=== PATIENT | female | born 1945 | race African-American/Black ===

== ENCOUNTER 2018-01-23 11:54 | Emergency (ER) | payer OTHER ==
[~2018-01-23] VITALS: Ht 160 cm; Wt 103.0 kg
[~2018-01-23 11:54] MED LIST: AMLODIPINE BESY10 MG PO; ASPIRIN EC81 MG PO; ATORVASTATIN CA20 MG PO; BMT1T PO; CARVEDILOL12.5 MG PO; CEFUROXIME500 MG PO; COREG12.5 MG PO; DOXYCYCLINE HY100 MG PO; FERROUS SULFAT325 MG PO; FUROSEMIDE40 MG PO; GABAPENTIN300 MG PO; GLIPIZIDE5 MG PO; HYDRALAZINE HCL25 MG PO; LASIX40 MG PO; LYRICA75 MG PO; METOPROLOL SUCC50 MG PO; NFD30TCR PO; NITROSTAT0.4 MG PO; NORCO 5-325 TA1 EACH PO; NOVOLIN 70100 UNITS/ SQ; PANTOPRAZOLE SO40 MG PO; TYLENOL WITH C1 EACH PO; ULTRAM50 MG PO
--- OUTSIDE RECORDS SUMMARY | 2018-01-23 11:59 | XMS REPORT | Clinical Summary ---
Author Author [facility] Organization [place] [facility] Address Unknown Phone Unavailable Care Team Providers Care Dem[employer]ator [employer] Name Role Phone Asked, No Pcp PCP Unavailable Allergies No Known Allergies Current Medications Prescription Sig. Disp. Refills Start End Date Status Date amLODIPine (NORVASC) 5 mg 07/16/19 Active tablet 18 atorvastatin (LIPITOR) 80 06/14/19 Active MG tablet 18 CONTOUR TEST STRIPS strip 05/30/19 Active test strips 18 calcitriol (ROCALTROL) TAKE ONE (1) CAPSULE(S) 3 06/29/19 Active 0.5 MCG capsule BY MOUTH DAILY. 18 calcium acetate (PHOSLO) 04/30/19 Active 667 mg capsule 18 carvedilol (COREG) 25 MG 06/14/19 Active tablet 18 furosemide (LASIX) 40 mg TAKE TWO (2) TABLET(S) BY 1 07/01/19 Active tablet MOUTH TWICE A DAY. 18 NOVOLOG MIX 70-30FLEXPEN Take Insulin twice a day 5 06/30/19 Active U-100 100 unit/mL (70-30) per sliding scale. 18 insulin pen TRUEPLUS LANCETS 28 gauge 05/30/19 Active misc 18 NIFEdipine XL (PROCARDIA 06/14/19 Active XL) 60 MG 24 hr tablet 18 pantoprazole (PROTONIX) TAKE ONE (1) TABLET(S) BY 3 07/01/19 Active 20 MG EC tablet MOUTH DAILY. 18 aspirin 81 mg chewable Chew 1 tablet daily. Active tablet cranberry 500 mg capsule Take 1 tablet by mouth Active daily. garlic 1,000 mg capsule Take 1 capsule by mouth Active daily. nitroglycerin (NITROSTAT) Place 0.4 mg under the 08/11/19 Active 0.4 MG SL tablet tongue as needed for 17 chest pain. acetaminophen-codeine Take 1 tablet by mouth Active (TYLENOL WITH CODEINE #3) every 6 (six) hours as 300-30 mg per tablet needed for pain. jrwjwqaxufny-Nb-tznj-mine Take 1 tablet by mouth Active rals tablet daily. ferrous sulfate 325 (65 Take 325 mg by mouth 3 Active FE) MG tablet (three) times a week. glipiZIDE (GLUCOTROL) 10 Take 10 mg by mouth as Active MG tablet needed. gabapentin (NEURONTIN) TAKE ONE (1) CAPSULE(S) 1 05/17/19 09/24/19 Discontin 100 mg capsule BY MOUTH TWICE A DAY. 18 18 ued gabapentin (NEURONTIN) 07/16/19 07/20/19 Discontin 300 mg capsule 18 18 ued metoclopramide (REGLAN) Take 0.5 tablets (5 mg 30 tablet 0 11/25/19 12/25/19 10 MG tablet total) by mouth every 6 18 18 (six) hours for 30 days. ciprofloxacin (CIPRO) 500 Take 1 tablet (500 mg 10 tablet 0 11/25/19 11/30/19 MG tablet total) by mouth 2 (two) 18 18 times a day for 5 days. Active Problems Problem Noted Date Left SCV stenosis mild, Right BCV stenosis moderate 10/16/2017 CVA (cerebral vascular accident) 1994 07/19/2017 Hypertension 07/19/2017 CHF (congestive heart failure) ([facility]) 07/19/2017 Diabetes mellitus (HCC) 07/19/2017 Hyperlipidemia 07/19/2017 Atrial fibrillation s/p Ablation 07/19/2017 ESRD (end stage renal disease) 2017 MWF 07/19/2017 Last Assessment & Plan: N. Patient with access needs. We gave the patient our kidney failure information sheet and discussed with them in general transplant vs. PD vs. hemodialysis. We discussed catheters vs. grafts vs. fistulas and used the informational posters to better explain the differences. We explained our general preference for fistulas because of decreased infections and increased longevity. We discussed operative complications including bleeding, thrombosis, failure of the access, swelling, steal syndrome, and need for additional procedures. Vein mapping reviewed by me. Plan for bilateral arm venograms, then later, R arm AVF vs. AVG (ELDERLY trial eval). 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 Back problem 07/19/2017 GERD (gastroesophageal reflux disease) 07/19/2017 Encounters Date Type Specialty Care Team Description 11/24/2017 Emergency Emergency Medicine Nuszen, Gregg A., DO Non-intractable cyclical vomiting with nausea (Primary Dx); Esophagitis 11/24/2017 Hospital Radiology Jaida Carranza MD ESRD (end stage renal Encounter disease) 11/24/2017 [facility] Radiology Jaida Carranza MD ESRD (end stage renal Encounter disease) 11/24/2017 Ancillary Radiology Jaida Carranza MD ESRD (end stage renal Orders disease) 11/24/2017 Procedure Pass Vascular Surgery 11/02/2017 Prep for Cardiovascular Chaya Vallecillo ESRD (end stage renal Surgery disease) (Primary Dx) 11/02/2017 Telephone Cardiovascular Chaya Vallecillo 10/16/2017 Documentation Cardiovascular Jaida Carranza MD Results 09/27/2017 [facility] Radiology Jaida Carranza MD ESRD (end stage renal Encounter disease) 2016 MWF 07/19/2017 Office Visit Jaida Singh MD ESRD (end stage renal disease) 2016 MWF (Primary Dx) 06/07/2017 Orders Only Cardiovascular Jaida Carranza MD End stage renal disease (Primary Dx) after 01/22/2017 Social History Tobacco Use Types Packs/Day Years Used Date Former Smoker Smokeless Tobacco: Former User Alcohol Use Drinks/Week oz/Week Comments No Sex Assigned at Date Recorded Not on file Last Filed Vital Signs Vital Sign Reading Time Taken Blood Pressure 163/68 11/24/2017 11:43 AM CDT Pulse 73 11/24/2017 11:43 AM CDT Temperature 35.8 C (96.4 F) 11/24/2017 11:43 AM CDT Respiratory Rate 16 11/24/2017 11:43 AM CDT Oxygen Saturation 100% 11/24/2017 11:43 AM CDT Inhaled Oxygen - - Concentration Weight 92.1 kg (203 lb) 11/24/2017 9:14 AM CDT Height 157.5 cm (5' 2") 11/24/2017 9:14 AM CDT Body Mass Index 37.13 11/24/2017 9:14 AM CDT Plan of Treatment Health Maintenance Due Date Last Done Comments DIABETIC FOOT EXAM 06/24/1955 DIABETIC RETINAL EYE EXAM 06/24/1955 URINE MICROALBUMIN 06/24/1955 BREAST CANCER SCREENING 06/24/1995 COLON CANCER SCREENING 06/24/1995 SHINGRIX VACCINE (#1) 06/24/1995 ZOSTER VACCINE 2005 INFLUENZA VACCINE 11/02/2017 01/06/2010, 01/02/2009, 01/09/2008 PNEUMOCOCCAL Completed 2011, 07/01/2006 POLYSACCHARIDE VACCINE AGE 65 AND OVER PNEUMOCOCCAL-13 Completed 12/04/2015 Implants Implanted Type Area Banana Handler Device Expiration Model / Identifier Date Serial / Lot Catheter Angio Anglesmith Helper Ii 5fr 65cm Surgical N/A: N/A BS PERIPHERAL [id number] [facility] Braidd Torque Diaz - Implants; INTERVENTION / [id number] Expanders; VASCULAR JEFF / Implanted: 09/27/2017 (Quantity not Extenders; on file) Surgical Wires Procedures Procedure Name Priority Date/Time Associated Diagnosis Comments URINALYSIS STAT 11/24/2017 Results for this 12:03 PM CDT procedure are in the results section. CT HEAD WO CONTRAST STAT 11/24/2017 Results for this 10:35 AM CDT procedure are in the results section. ZZESTIMATED GFR STAT 11/24/2017 Results for this 10:28 AM CDT procedure are in the results section. TROPONIN, I-STAT STAT 11/24/2017 Results for this 10:28 AM CDT procedure are in the results section. CREATINE KINASE, TOTAL STAT 11/24/2017 Results for this (CPK) 10:28 AM CDT procedure are in the results section. COMPREHENSIVE METABOLIC STAT 11/24/2017 Results for this PANEL 10:28 AM CDT procedure are in the results section. LACTIC ACID, I-STAT STAT 11/24/2017 Results for this 10:28 AM CDT procedure are in the results section. HC COMPLETE BLD COUNT STAT 11/24/2017 Results for this W/AUTO DIFF 10:28 AM CDT procedure are in the results section. ECG ED PRELIMINARY Routine 11/24/2017 Results for this INTERPRETATION 9:47 AM CDT procedure are in the results section. ECG 12-LEAD STAT 11/24/2017 Results for this 9:45 AM CDT procedure are in the results section. IR BILATERAL UPPER Routine 09/27/2017 ESRD (end stage renal Results for this EXTREMITY VENOGRAM 10:04 AM CDT disease) 2017 MWF procedure are in the results section. POC GLUCOSE Routine 09/27/2017 Results for this 7:44 AM CDT procedure are in the results section. US VEIN MAPPING UPPER Routine 07/19/2017 End stage renal disease Results for this EXTREMITY BILATERAL 8:54 AM CDT procedure are in the results section. after 01/22/2017 Results * Urinalysis (11/24/2017 12:03 PM) Glucose, UA Negative Negative [facility] Bilirubin, UA Negative Negative [facility] Ketones, UA Negative Negative [facility] Specific gravity, UA 1.020 1.001 - 1.035 [facility] Blood, UA Trace (A) Negative [facility] pH, UA 7.0 5.0 - 8.5 [facility] Protein, UA 3+ (A) Negative [facility] Urobilinogen, UA <2.0 <2.0 [facility] Nitrite, UA Negative Negative [facility] Leukocyte esterase, UA Small (A) Negative [facility] Color, UA Yellow [facility] Appearance, UA Cloudy [facility] Specimen Urine Performing Organization Address City/State/Zipcode Phone Number [address] [address] PATHOLOGY AND [facility] * CT Head Wo Contrast (11/24/2017 10:35 AM) Narrative Performed At EXAMINATION: CT HEAD WO CONTRAST RADIANT CLINICAL HISTORY: Headacheacutesevereworst KELLY of life, increasing nausea for 2 weeks COMPARISON:CT brain from October 10, 2014. MRI brain from October 12, 2014. TECHNIQUE: Noncontrast enhanced images of the brain were obtained from the skull base to the vertex. Both soft tissue and bone reconstruction algorithms were performed.CT scans are performed using radiation dose reduction techniques. Technical factors are evaluated and adjusted to ensure appropriate moderation of exposure. Automated dose management technology is applied to adjust radiation exposure while achieving a diagnostic quality image. FINDINGS: Artifacts obscure details. There is no definite evidence of acute intracranial hemorrhage or mass, hydrocephalus or midline shift, stroke or thrombus in the vessels. There are old infarcts in the cerebellum. There is nonspecific enlargement of the ventricles and extra-axial space and mild nonspecific white matter changes. There is calcification of frye of some arteries. The sella is partially empty. There is pseudophakia. The sinuses and mastoid air cells do not show abnormality. There is nonspecific increased bone density. IMPRESSION: No acute intracranial abnormality identified. [facility]-[id number] Procedure Note Interface, Radiology Results Incoming - 11/24/2017 10:40 AM CDT EXAMINATION: CT HEAD WO CONTRAST CLINICAL HISTORY: Headache acute severe worst KELLY of life, increasing nausea for 2 weeks COMPARISON: CT brain from October 10, 2014. MRI brain from October 12, 2014. TECHNIQUE: Noncontrast enhanced images of the brain were obtained from the skull base to the vertex. Both soft tissue and bone reconstruction algorithms were performed. CT scans are performed using radiation dose reduction techniques. Technical factors are evaluated and adjusted to ensure appropriate moderation of exposure. Automated dose management technology is applied to adjust radiation exposure while achieving a diagnostic quality image. FINDINGS: Artifacts obscure details. There is no definite evidence of acute intracranial hemorrhage or mass, hydrocephalus or midline shift, stroke or thrombus in the vessels. There are old infarcts in the cerebellum. There is nonspecific enlargement of the ventricles and extra-axial space and mild nonspecific white matter changes. There is calcification of frye of some arteries. The sella is partially empty. There is pseudophakia. The sinuses and mastoid air cells do not show abnormality. There is nonspecific increased bone density. IMPRESSION: No acute intracranial abnormality identified. [facility]-[id number] Performing Organization Address City/State/Zipcode Phone Number [address] [place] [address] * Estimated GFR (11/24/2017 10:28 AM) GFR Non Af Amer 7 (A) mL/min/1.73 m2 DEPARTMENT OF PATHOLOGY AND GENOMIC MEDICINE, [facility] GFR Af Amer 8 (A) mL/min/1.73 m2 DEPARTMENT OF Comment: PATHOLOGY AND Chronic kidney disease: <60 GENOMIC MEDICINE, mL/min/1.73m2 [facility] Kidney failure: <15 [facility] mL/min/1.73m2 The estimated GFR is calculated from the IDMS-traceable Modification of Diet in Renal Disease Equation. The accuracy of the calculation is poor when the creatinine is normal. Calculated values >90 mL/min/1.73m2 are not reported. This equation has not been validated in children (<18 years), women, the elderly (>70 years), or ethnic groups other than Caucasians and Americans. Specimen Plasma specimen Performing Organization Address City/[facility] [place] [address] [facility] * Troponin, I-Stat (11/24/2017 10:28 AM) Troponin, I-Stat 0.00 0.00 - 0.08 ng/mL DEPARTMENT OF Comment: PATHOLOGY AND 0.09 - 1.49 GENOMIC MEDICINE, ng/mlMay [facility] indicate increased risk of [facility] acute coronary syndrome. >=1.5 ng/ml Consistent with acute myocardial infarction. The diagnostic value of a single normal or non-diagnostic result is questionable.Serial samples at 2-6 hour intervals are required to rule out acute myocardial injury. Specimen Plasma specimen Performing Organization Address City/[facility] [place] [address] [facility] * Lactic acid, I-Stat (11/24/2017 10:28 AM) Lactic acid, I-Stat 1.1 0.5 - 2.2 mmol/L [facility] Specimen Plasma specimen Performing Organization Address City/[facility] [place] [address] [facility] * CBC with platelet and differential (11/24/2017 10:28 AM) WBC 5.74 4.50 - 11.00 k/uL [facility] RBC 4.26 4.20 - 5.50 m/uL [facility] HGB 12.0 12.0 - 16.0 g/dL [facility] HCT 38.9 37.0 - 47.0 % [facility] MCV 91.3 82.0 - 100.0 fL [facility] MCH 28.2 27.0 - 34.0 pg [facility] MCHC 30.8 (L) 31.0 - 37.0 g/dL [facility] RDW - SD 52.4 37.0 - 55.0 fL [facility] MPV 10.3 8.8 - 13.2 fL [facility] Platelet count 160 150 - 400 k/uL [facility] Neutrophils 54.7 39.0 - 69.0 % [facility] Lymphocytes 34.3 25.0 - 45.0 % [facility] Monocytes 8.4 0.0 - 10.0 % [facility] Eosinophils 1.9 0.0 - 5.0 % [facility] Basophils 0.7 0.0 - 1.0 % [facility] Specimen Blood Performing Organization Address City/[facility]/[place] [address] [facility] * Creatine kinase, total (CPK) (11/24/2017 10:28 AM) Creatine kinase 60 30 - 190 U/L [facility] Specimen Plasma specimen Performing Organization Address City/State/[place] [address] [facility] * Comprehensive metabolic panel (11/24/2017 10:28 AM) Sodium 134 128 - 145 mEq/L [facility] Potassium 4.6 3.6 - 5.1 mEq/L [facility] CO2 30 18 - 33 mEq/L [facility] Chloride 99 98 - 108 mEq/L [facility] Glucose 111 73 - 118 mg/dL [facility] Calcium 9.7 8.0 - 10.3 mg/dL [facility] BUN 29 (H) 7 - 22 mg/dL [facility] Creatinine 6.3 (H) 0.6 - 1.2 mg/dL [facility] Alkaline phosphatase 28 (L) 42 - 141 U/L [facility] ALT 27 10 - 47 U/L [facility] AST 30 11 - 38 U/L [facility] Total bilirubin 0.4 0.2 - 1.6 mg/dL [facility] Albumin 3.6 3.3 - 5.5 g/dL [facility] Protein 6.9 6.4 - 8.1 g/dL [facility] Anion gap 5@ANIO (L) 7 - 15 mEq/L [facility] A/G ratio 1.1 0.7 - 3.8 [facility] Specimen Plasma specimen Performing Organization Address City/State/[place] [address] [facility] * ECG ED Preliminary Interpretation - NOT AN ORDER (11/24/2017 9:47 AM) Narrative Performed At Gregg Guaman DO 11/24/20179:48 AM ECG ED Preliminary Interpretation - Not an Order Performed by: GREGG GUAMAN Authorized by: GREGG GUAMAN ECG reviewed by ED Physician in the absence of a assistant professor of sociology: yes Previous ECG: Previous ECG:Unavailable Interpretation: Interpretation: normal Rate: ECG rate:67 ECG rate assessment: normal Rhythm: Rhythm: sinus rhythm Ectopy: Ectopy: none QRS: QRS axis:Normal Conduction: Conduction: normal ST segments: ST segments:Normal T waves: T waves: normal * ECG 12 lead (11/24/2017 9:45 AM) Ventricular rate 67 [facility] Atrial rate 67 [facility] OR interval 194 [facility] QRSD interval 70 [facility] QT interval 404 [facility] QTC interval 426 [facility] P axis 1 41 [facility] QRS axis 1 -11 [facility] T wave axis 29 [facility] EKG impression Normal sinus rhythm-Poor R [facility] wave progression-Nonspecific T wave abnormality-Abnormal ECG-In automated comparison with ECG of 10-OCT-2014 21:21,-Questionable change in QRS axis-Nonspecific T wave abnormality now evident in Inferior leads- Performing Organization Address City/State/Zipcode Phone Number [facility] MUSE [address] [place] [address] * IR Bilateral Upper Extremity Venogram (09/27/2017 10:04 AM) Narrative Performed At EXAMINATION:IR BILATERAL UPPER EXTREMITY VENOGRAM HM RADIANT CLINICAL HISTORY:N18.6 End stage renal disease, Eval for hemodialysis access COMPARISON:None. PROCEDURE: Diagnostic venography Procedural Personnel Attending physician(s): Jose Ellison Fellow physician(s): None Resident physician(s): None Advanced practice provider(s): None Pre-procedure diagnosis: End-stage renal disease undergoing hemodialysis access planning. Post-procedure diagnosis: Same Indication: [id number] renal disease undergoing hemodialysis access planning. Surgical planning. Additional clinical history: None Complications: No immediate complications. 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 Bilateral axillary veins, right subclavian vein, and SVC are patent. Plan:Discharge home PROCEDURE SUMMARY: - Venous access with ultrasound guidance - Selective venography as described below - Additional procedure(s): None PROCEDURE DETAILS: Pre-procedure Consent: Informed consent for the procedure including risks, benefits and alternatives was obtained and time-out was performed prior to the procedure. Preparation: The site was prepared and draped using maximal sterile barrier technique including cutaneous antisepsis. Anesthesia/sedation Level of anesthesia/sedation: No sedation Anesthesia/sedation administered by: Independent trained observer under attending supervision with continuous monitoring of the patient's level of consciousness and physiologic status Total intra-service sedation time (minutes): Not applicable Access Local anesthesia was administered. The vessel was sonographically evaluated and determined to be patent. Real time ultrasound was used to visualize needle entry into the vessel and a permanent image was stored. A 5 Welsh sheath was placed. Vein accessed: Left and right brachial veins. Access technique: Micropuncture set with 21 gauge needle Venography Indication for venography: Roadmapping for procedure Vein catheterized: Left and right brachial veins Findings: Left upper extremity: Left subclavian vein stenosis near the subclavian/brachiocephalic vein junction. Right brachiocephalic vein stenosis. Closure The sheath was removed and hemostasis was achieved with manual compression. A sterile dressing was applied. Contrast Contrast agent: Visipaque 320 Contrast volume (mL): 50 Radiation Dose: Reference air kerma (mGy): 75 Additional Details Additional description of procedure: None Equipment details: None Specimens removed: None Estimated blood loss (mL): Less than 10 Standardized report: [id number] [facility]-[id number] Procedure Note Hm Interface, Radiology Results Incoming - 09/27/2017 4:35 PM CDT EXAMINATION: IR BILATERAL UPPER EXTREMITY VENOGRAM CLINICAL HISTORY: N18.6 End stage renal disease, Eval for hemodialysis access COMPARISON: None. PROCEDURE: Diagnostic venography Procedural Personnel Attending physician(s): Jose Ellison Fellow physician(s): None Resident physician(s): None Advanced practice provider(s): None Pre-procedure diagnosis: End-stage renal disease undergoing hemodialysis access planning. Post-procedure diagnosis: Same Indication: [id number] renal disease undergoing hemodialysis access planning. Surgical planning. Additional clinical history: None Complications: No immediate complications. 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 Bilateral axillary veins, right subclavian vein, and SVC are patent. Plan:Discharge home PROCEDURE SUMMARY: - Venous access with ultrasound guidance - Selective venography as described below - Additional procedure(s): None PROCEDURE DETAILS: Pre-procedure Consent: Informed consent for the procedure including risks, benefits and alternatives was obtained and time-out was performed prior to the procedure. Preparation: The site was prepared and draped using maximal sterile barrier technique including cutaneous antisepsis. Anesthesia/sedation Level of anesthesia/sedation: No sedation Anesthesia/sedation administered by: Independent trained observer under attending supervision with continuous monitoring of the patient's level of consciousness and physiologic status Total intra-service sedation time (minutes): Not applicable Access Local anesthesia was administered. The vessel was sonographically evaluated and determined to be patent. Real time ultrasound was used to visualize needle entry into the vessel and a permanent image was stored. A 5 Welsh sheath was placed. Vein accessed: Left and right brachial veins. Access technique: Micropuncture set with 21 gauge needle Venography Indication for venography: Roadmapping for procedure Vein catheterized: Left and right brachial veins Findings: Left upper extremity: Left subclavian vein stenosis near the subclavian/brachiocephalic vein junction. Right brachiocephalic vein stenosis. Closure The sheath was removed and hemostasis was achieved with manual compression. A sterile dressing was applied. Contrast Contrast agent: Visipaque 320 Contrast volume (mL): 50 Radiation Dose: Reference air kerma (mGy): 75 Additional Details Additional description of procedure: None Equipment details: None Specimens removed: None Estimated blood loss (mL): Less than 10 Standardized report: [id number] [facility]-[id number] Performing Organization Address [facility] Hospitalcode Phone Number [facility] [address] [place] [address] * POC glucose (09/27/2017 7:44 AM) POC glucose 157 (H) 65 - 99 mg/dL [facility] DEPARTMENT OF Comment: PATHOLOGY AND [facility] Notified RN GENOMIC MEDICINE Meter ID: [id number] Appliance Painter And Refinisher: Donavan Simon Performing Organization Address City/[facility]/Zipcode Phone Number [address] [address] PATHOLOGY AND GENOMIC MEDICINE * PV vein mapping upper extremity (07/19/2017 8:54 AM) Narrative Performed At [facility] Upper Extremity Vein Mapping Duplex Report [id number] [place], [place] Pat.Name:ERENDIRA ACEVEDO Pat.ID:[id number] .Date: 07/19/2017 Refer.MD:JAIDA CARRANZA MD Exam Time: 8:05:00 AMStudy Type:UE Vein Mapping DOBAge:1945,72Y Sex: FEMALE Sonogrphr: Prasanth Garcia. Stat.:Outpatient CPT - 4: 36255 Echo Event ID:[id number] Order ID:[id number] Reason for Study:Pre-operative vein mapping, previous failed right upper extremity AVF. ESRD. Right TDC Race:B SUMMARY: DUPLEX SCAN OBSERVATIONS Right Left IJPatent Patent SubclavianPatent Patent AxillaryPatent Patent BrachialPatent Patent Cephalic, arm Partial Patent Cephalic, forearm PatentNot visualized Basilic, armPatent Patent Basilic, forearm Not visualized Patent Brachial artery Pressure 197/71198/79 PSV cm/sec 9096 Radial artery PSV cm/sec 6644 Ulnar artery PSV cm/sec 4670 RIGHT:The distal upper arm cephalic vein is non compressible with echogenic material visualized within the lumen. There is normal compressibility and no evidence of echogenic material noted within the lumen of the remaining visualized veins. Colorflow and Doppler signals demonstrate patency. The frye of the radial and ulnar arteries are brightly echogenic. There is a previous failed brachiocephalic AV fistula in the distal upper arm. LEFT: There is normal compressibility and no evidence of echogenic material noted within the lumen of the visualized veins. Colorflow and Doppler signals demonstrate patency.The frye of the radial and ulnar arteries arebrightly echogenic. Patient seen in clinic by Dr. Carranza PHYSICIAN INTERPRETATION 1.No evidence of acute venous thrombosis, bilateral upper extremities. 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 3.There is a previous failed brachiocephalic AV fistula in the right distal upper arm. 4.See diagram for vein measurements MEASUREMENTS: DOPPLER Innominate Right Innominat 0.419 cm UEVEINS Right Cephalic Forearm Prox Cephalic Forear0.18 cm Left Cephalic Upper Arm Prox Cephalic Upper 0.27 cm Right Cephalic Upper Arm Prox Cephalic Upper 0.22 cm Right Cephalic Forearm Mid Cephalic Forear0.27 cm Left Basilic Upper Arm Mid Basilic Upper A0.32 cm Right Basilic Upper Arm Mid Basilic Upper A0.33 cm Right Cephalic Wrist Cephalic Wrist 0.21 cm Left Cephalic Upper Arm Dist Cephalic Upper 0.19 cm Right Cephalic Upper Arm Dist Cephalic Upper 0.25 cm Left Ulnar Artery Ulnar Artery AP0.23 cm Right Ulnar Artery Ulnar Artery AP0.12 cm Left Cephalic Upper Arm Mid Cephalic Upper 0.26 cm Right Cephalic Upper Arm Mid Cephalic Upper 0.23 cm Left Basilic Forearm Prox Basilic Forearm0.24 cm Right Brachial Vein Antecube Brachial Vein A0.42 cm Left Cephalic Antecubital Cephalic Antecu0.27 cm Right Cephalic Antecubital Cephalic Antecu0.26 cm Left Basilic Wrist Basilic Wrist A0.14 cm Left Basilic Antecubital Basilic Antecub0.19 cm Left Radial Artery Radial Artery A0.21 cm Right Radial Artery Radial Artery A0.22 cm Left Basilic Upper Arm Dist Basilic Upper A0.27 cm Right Basilic Upper Arm Dist Basilic Upper A0.38 cm Left Brachial Artery Brachial Artery0.33 cm Right Brachial Artery Brachial Artery 0.4 cm Left Basilic Forearm Mid Basilic Forearm0.19 cm Left Basilic Upper Arm Prox Basilic Upper A0.38 cm Right Basilic Antecubital Fossa Basilic Antecub0.24 cm Left Brachial Vein Antecube Brachial Vein A0.36 cm GRAFT Ulnar A Dist 1 Ulnar A Dist 1 70 cm/s Ulnar Dist Ulnar Dist PSV46 cm/s Brachial A Dist Brachial A Dist90 cm/s Radial A Dist Radial A Dist P66 cm/s Signed 07/19/2017 09:35 AM Brian Lambert MD, RPVI Procedure Note Interface, Radiology Results In - 07/19/2017 9:35 AM CDT [facility] Upper Extremity Vein Mapping Duplex Report [id number] [place] [address] Pat.Name: ERENDIRA ACEVEDO Pat.ID: [id number] .Date: 07/19/2017 Refer.MD: JAIDA CARRANZA MD Exam Time: 8:05:00 AM Study Type:UE Vein Mapping Age: 3 1945,72Y Sex: FEMALE Sonogrphr: DESHAWN Garcia Pat. Stat.:Outpatient CPT - 4: 67488 Echo Event ID:[id number] Order ID: [id number] Reason for Study:Pre-operative vein mapping, previous failed right upper extremity AVF. ESRD. Right C Race: B SUMMARY: DUPLEX SCAN OBSERVATIONS Right Left IJ Patent Patent Subclavian Patent Patent Axillary Patent Patent Brachial Patent Patent Cephalic, arm Partial Patent Cephalic, forearm Patent Not visualized Basilic, arm Patent Patent Basilic, forearm Not visualized Patent Brachial artery Pressure 197/84 191/79 PSV cm/sec 90 96 Radial artery PSV cm/sec 66 44 Ulnar artery PSV cm/sec 46 70 RIGHT:The distal upper arm cephalic vein is non compressible with echogenic material visualized within the lumen. There is normal compressibility and no evidence of echogenic material noted within the lumen of the remaining visualized veins. Colorflow and Doppler signals demonstrate patency. The frye of the radial and ulnar arteries are brightly echogenic. There is a previous failed brachiocephalic AV fistula in the distal upper arm. LEFT: There is normal compressibility and no evidence of echogenic material noted within the lumen of the visualized veins. Colorflow and Doppler signals demonstrate patency. The frye of the radial and ulnar arteries are brightly echogenic. Patient seen in clinic by Dr. Carranza PHYSICIAN INTERPRETATION 1. No evidence of acute venous thrombosis, bilateral upper extremities. 2. 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 3. There is a previous failed brachiocephalic AV fistula in the right distal upper arm. 4. See diagram for vein measurements MEASUREMENTS: DOPPLER Innominate Right Innominat 0.419 cm UEVEINS Right Cephalic Forearm Prox Cephalic Forear 0.18 cm Left Cephalic Upper Arm Prox Cephalic Upper 0.27 cm Right Cephalic Upper Arm Prox Cephalic Upper 0.22 cm Right Cephalic Forearm Mid Cephalic Forear 0.27 cm Left Basilic Upper Arm Mid Basilic Upper A 0.32 cm Right Basilic Upper Arm Mid Basilic Upper A 0.33 cm Right Cephalic Wrist Cephalic Wrist 0.21 cm Left Cephalic Upper Arm Dist Cephalic Upper 0.19 cm Right Cephalic Upper Arm Dist Cephalic Upper 0.25 cm Left Ulnar Artery Ulnar Artery AP 0.23 cm Right Ulnar Artery Ulnar Artery AP 0.12 cm Left Cephalic Upper Arm Mid Cephalic Upper 0.26 cm Right Cephalic Upper Arm Mid Cephalic Upper 0.23 cm Left Basilic Forearm Prox Basilic Forearm 0.24 cm Right Brachial Vein Antecube Brachial Vein A 0.42 cm Left Cephalic Antecubital Cephalic Antecu 0.27 cm Right Cephalic Antecubital Cephalic Antecu 0.26 cm Left Basilic Wrist Basilic Wrist A 0.14 cm Left Basilic Antecubital Basilic Antecub 0.19 cm Left Radial Artery Radial Artery A 0.21 cm Right Radial Artery Radial Artery A 0.22 cm Left Basilic Upper Arm Dist Basilic Upper A 0.27 cm Right Basilic Upper Arm Dist Basilic Upper A 0.38 cm Left Brachial Artery Brachial Artery 0.33 cm Right Brachial Artery Brachial Artery 0.4 cm Left Basilic Forearm Mid Basilic Forearm 0.19 cm Left Basilic Upper Arm Prox Basilic Upper A 0.38 cm Right Basilic Antecubital Fossa Basilic Antecub 0.24 cm Left Brachial Vein Antecube Brachial Vein A 0.36 cm GRAFT Ulnar A Dist 1 Ulnar A Dist 1 70 cm/s Ulnar Dist Ulnar Dist PSV 46 cm/s Brachial A Dist Brachial A Dist 90 cm/s Radial A Dist Radial A Dist P 66 cm/s Signed 07/19/2017 09:35 AM Brian Lambert MD, RPVI Performing Organization Address City/State/[facility] Hospitalcode Phone Number [facility] [phone] [place] [address] after 01/22/2017 Insurance Payer Benefit Subscriber ID Type Phone Address Plan / Group [employer] TEX[employer] xxxxxxxxx [facility]
--- OUTSIDE RECORDS SUMMARY | 2018-01-23 11:59 | XMS REPORT | Clinical Summary ---
Author Author [facility] Organization [facility] Address Unknown Phone Unavailable Care Team Providers Care Vet Tech Name Role Phone PCP Unavailable Allergies No Known Allergies Current Medications Prescription Sig. Disp. Refills Start End Date Status Date amLODIPine (NORVASC) 10 Take 10 mg by mouth Active MG tablet daily. atorvastatin (LIPITOR) 40 Take 80 mg by mouth daily Active MG tablet . carvedilol (COREG) 12.5 Take 12.5 mg by mouth 2 Active MG tablet (two) times daily with breakfast and dinner. garlic 1,000 mg Cap Take by mouth. Active glipiZIDE (GLUCOTROL) 10 Take 10 mg by mouth 2 Active MG tablet (two) times daily before meals. HYDROcodone-acetaminophen Take 1 tablet by mouth Active (NORCO 5-325) 5-325 mg every 6 (six) hours as per tablet needed. multivitamin capsule Take 1 capsule by mouth Active daily. nitroglycerin (NITROSTAT) Place 0.4 mg under the Active 0.4 MG SL tablet tongue every 5 (five) minutes as needed. pantoprazole (PROTONIX) Take 40 mg by mouth Active 40 MG tablet daily. aspirin 81 MG EC tablet Take 81 mg by mouth Active daily. NIFEdipine (PROCARDIA-XL) Take 60 mg by mouth 2 Active 60 MG (OSM) 24 hr (two) times daily. tabletIndications: ESRD (end stage renal disease) on dialysis ([facility]) hydrALAZINE (APRESOLINE) Take 25 mg by mouth 2 Active 25 MG tabletIndications: (two) times daily. ESRD (end stage renal disease) on dialysis ([facility]) ferrous sulfate 325 (65 Take 325 mg by mouth 2 Active FE) MG tabletIndications: (two) times daily. ESRD (end stage renal disease) on dialysis ([facility]) acetaminophen-codeine Take 1 tablet by mouth 4 Active (TYLENOL #3) 300-30 mg (four) times daily as per tabletIndications: needed for Pain. ESRD (end stage renal disease) on dialysis ([facility]) furosemide (LASIX) 40 MG Take 40 mg by mouth 2 Active tabletIndications: ESRD (two) times daily. (end stage renal disease) on dialysis ([facility]) cranberry 500 mg Take 1 tablet by mouth Active CapIndications: ESRD (end daily. stage renal disease) on dialysis ([facility]) metoprolol (TOPROL-XL) Take 100 mg by mouth Active 100 MG 24 hr tablet daily. gabapentin (NEURONTIN) Take 300 mg by mouth 01/18/20 Active 100 MG capsule daily . 14 Active Problems Problem Noted Date Hematoma of arm, right, initial encounter 03/31/2016 End-stage renal disease (ESRD) ([facility]) 03/30/2016 ESRD (end stage renal disease) on dialysis ([facility]) 01/20/2016 Acute exacerbation of chronic low back pain 01/09/2014 Encounters Date Type Specialty Care Team Description 05/18/2017 Outside Orders Radiology Urszula Hartman MD ESRD (end stage renal disease) ([facility]) (Primary Dx) after 01/22/2017 Family History Medical History Relation Name Comments Unremarkable Father Unremarkable Mother Relation Name Status Comments Father Mother Social History Tobacco Use Types Packs/Day Years Used Date Former Smoker 0.25 15 Smokeless Tobacco: Never Used Comments: quit 1992 Alcohol Use Drinks/Week oz/Week Comments No Sex Assigned at Date Recorded Not on file Last Filed Vital Signs Not on file Plan of Treatment Health Maintenance Due Date Last Done Comments INFLUENZA VACCINE 01/02/2018 Implants Implanted Type Area Lean Leader Device Expiration Model / Identifier Date Serial / Lot Sealant,Floseal Hemostatic Matrix Cement/Gaudencio N/A: Spine ETIENNE 12/02/2014 [id number] / 10ml - [id number] ler/Adhesi Lumbar BIOSCIENCE / Implanted: Qty: 2 on 09/10/2013 by ve [employer]MER [employer] [id number] Veronica Cameron MD MEDICAL Results * PERIPHERAL VASCULAR REPORT - SCAN (05/19/2017 1:21 PM) * Vein mapping arm/arms (05/19/2017 10:56 AM) Component Value Ref Range Ejection Fraction Specimen Performing Laboratory [facility] ECHO [facility] Impressions Right Impression 1. There is no deep venous obstruction in the jugular, axillary, brachial, radial or ulnar veins. 2. The subclavian vein and artery are not visualized due to dialysis catheter. 3. There is no superficial venous obstruction in the cephalic or basilic veins. 4. The subclavian, axillary, brachial, radial and ulnar arteries are patent with normal triphasic Doppler waveforms throughout. Left Impression 1. There is no deep venous obstruction in the jugular, axillary, brachial, radial or ulnar veins. 2. There is no superficial venous obstruction in the cephalic or basilic veins. 3. The subclavian, axillary, brachial, radial and ulnar arteries are patent with normal triphasic Doppler waveforms throughout. Conclusions Summary Arterial duplex imaging, venous duplex imaging and compression of both upper extremities was performed. The arteries and veins were adequately visualized except as noted. The arteries were patent with normal triphasic Doppler waveforms bilaterally. The venous systems were patent and compressible with no evidence of thrombus in the visualized veins. Superficial venous measurements are documented below. Signature Velocities are measured in cm/s ; Diameters are measured in cm Cephalic Mapping Right Left + + + + + + + + !Location ! !AP Diam!Trans Diam! !AP Diam!Trans Diam ! + + + + + + + + !Cephalic at Prox UA ! ! !0.19! ! !0.27! + + + + + + + + !Cephalic at Mid UA! ! !0.2 ! ! !0.22! + + + + + + + + !Cephalic at Dist UA ! ! !0.17! ! !0.2 ! + + + + + + + + !Cephalic at Prox LA ! ! !0.18! ! !0.21! + + + + + + + + !Cephalic at Mid LA! ! !0.21! ! !0.15! + + + + + + + + !Cephalic at Dist LA ! ! !0.18! ! !0.09! + + + + + + + + Basilic Mapping Right Left + + + + + + + + !Location ! !AP Diam!Trans Diam! !AP Diam!Trans Diam ! + + + + + + + + !Basilic at Prox UA! ! !0.42! ! !0.51! + + + + + + + + !Basilic at Mid UA ! ! !0.37! ! !0.27! + + + + + + + + !Basilic at Dist UA! ! !0.37! ! !0.25! + + + + + + + + !Basilic at Prox LA! ! !0.18! ! !0.21! + + + + + + + + !Basilic at Mid LA ! ! !0.11! ! !0.18! + + + + + + + + !Basilic at Dist LA! ! !0.17! ! !0.1 ! + + + + + + + + Narrative [facility] - Upper Extremities Vein Mapping Demographics Patient NameWILLBEATRIZ, AMMIEDate of Study 05/19/2017 FLACA Age 71 Visit [id number] GenderFemale Date of 1945 Number Referring Devan Seaman Room Number Physician Employment Advisor Olga MarreroJ. Saturnino Funes RN, SHANTANUTPhynelia GONZALEZ, RPVI Procedure Type of Study: Veins: Upper Extremities Veins, VENOUS DOPPLER ARMS, BILATERAL, Upper Extremity Vein Mapping, VEIN MAPPING ARM/ARMS. Indications for Study:ESRD and Pre-Op Vein Mapping for Arterial Venous Fistula or Graft. Patient Status:Routine. Study Location:Vascular Lab. Technical Quality:Adequate visualization. Risk Factors History of Disease + +----+ + !Diagnosis!Date!Comments ! + +----+ + !History/Risk Factors:!!ESRD, CHF, HTN, DM ! ! !!Dialysis catheter right shoulder ! + +----+ + Procedure Note Interface, External Ris In - 05/19/2017 12:45 PM SENIOR GAME DEVELOPER [facility] - Upper Extremities Vein Mapping Demographics Patient Name SHANTELL ACEVEDO Date of Study 05/19/2017 FLACA Age 71 Visit Number [id number] Gender Female Date of 1945 Number Referring Devan Seaman Room Number Physician Employment Advisor Olga Rocha Interpreting Cristela Funes, SHELBY, RVT Physician MD, RPVI Procedure Type of Study: Veins: Upper Extremities Veins, VENOUS DOPPLER ARMS, BILATERAL, Upper Extremity Vein Mapping, VEIN MAPPING ARM/ARMS. Indications for Study:ESRD and Pre-Op Vein Mapping for Arterial Venous Fistula or Graft. Patient Status:Routine. Study Location:Vascular Lab. Technical Quality:Adequate visualization. Risk Factors History of Disease + +----+ + !Diagnosis !Date!Comments ! + +----+ + !History/Risk Factors: ! !ESRD, CHF, HTN, DM ! ! ! !Dialysis catheter right shoulder ! + +----+ + Impressions Right Impression 1. There is no deep venous obstruction in the jugular, axillary, brachial, radial or ulnar veins. 2. The subclavian vein and artery are not visualized due to dialysis catheter. 3. There is no superficial venous obstruction in the cephalic or basilic veins. 4. The subclavian, axillary, brachial, radial and ulnar arteries are patent with normal triphasic Doppler waveforms throughout. Left Impression 1. There is no deep venous obstruction in the jugular, axillary, brachial, radial or ulnar veins. 2. There is no superficial venous obstruction in the cephalic or basilic veins. 3. The subclavian, axillary, brachial, radial and ulnar arteries are patent with normal triphasic Doppler waveforms throughout. Conclusions Summary Arterial duplex imaging, venous duplex imaging and compression of both upper extremities was performed. The arteries and veins were adequately visualized except as noted. The arteries were patent with normal triphasic Doppler waveforms bilaterally. The venous systems were patent and compressible with no evidence of thrombus in the visualized veins. Superficial venous measurements are documented below. Signature Velocities are measured in cm/s ; Diameters are measured in cm Cephalic Mapping Right Left + + + + + + + + !Location ! !AP Diam !Trans Diam ! !AP Diam !Trans Diam ! + + + + + + + + !Cephalic at Prox UA ! ! !0.19 ! ! !0.27 ! + + + + + + + + !Cephalic at Mid UA ! ! !0.2 ! ! !0.22 ! + + + + + + + + !Cephalic at Dist UA ! ! !0.17 ! ! !0.2 ! + + + + + + + + !Cephalic at Prox LA ! ! !0.18 ! ! !0.21 ! + + + + + + + + !Cephalic at Mid LA ! ! !0.21 ! ! !0.15 ! + + + + + + + + !Cephalic at Dist LA ! ! !0.18 ! ! !0.09 ! + + + + + + + + Basilic Mapping Right Left + + + + + + + + !Location ! !AP Diam !Trans Diam ! !AP Diam !Trans Diam ! + + + + + + + + !Basilic at Prox UA ! ! !0.42 ! ! !0.51 ! + + + + + + + + !Basilic at Mid UA ! ! !0.37 ! ! !0.27 ! + + + + + + + + !Basilic at Dist UA ! ! !0.37 ! ! !0.25 ! + + + + + + + + !Basilic at Prox LA ! ! !0.18 ! ! !0.21 ! + + + + + + + + !Basilic at Mid LA ! ! !0.11 ! ! !0.18 ! + + + + + + + + !Basilic at Dist LA ! ! !0.17 ! ! !0.1 ! + + + + + + + + after 01/22/2017
[2018-01-23] MEDS ORDERED: SODIUM CHLORIDE 0.9% 1000ML 1,000 ML IV SCH (14:00)
== END 2018-01-23 15:40 | disposition short-term general hospital (02) ==
LOC: FSED 11:54
DX: R53.83 Other fatigue (principal); K52.9 Noninfective gastroenteritis and colitis, unspecified; N28.9 Disorder of kidney and ureter, unspecified; E86.0 Dehydration; Z99.2 Dependence on renal dialysis
CPT/HCPCS: 80053; 81003; 85025; 87400; 99284; J7030

== ENCOUNTER 2019-12-18 10:29 | Emergency (ER) | payer MEDICARE, OTHER ==
[~2019-12-18] VITALS: Ht 157.5 cm; Wt 71.7 kg
--- OUTSIDE RECORDS SUMMARY | 2019-12-18 11:14 | XMS REPORT | Clinical Summary ---
Author Author JEFFERSON LUMO [facility]St[facility] FruitlandTransmex Systems [employer] [facility] Organization [facility] LUMO [facility]landGlobalWise InvestmentsNew[facility] Address Unknown Phone Unavailable Care Team Providers Care Image Scientist Name Role Phone Sharpless PCP SantiagoBishop Unavailable Allergies No Known Allergies Medications End Date Status Medication Sig Dispensed Refills Start Date Active atorvastatin (LIPITOR) 40 Take 80 mg by 0 MG tablet mouth daily . Active garlic 1,000 mg Cap Take by 0 mouth. Active multivitamin capsule Take 1 0 capsule by mouth daily. Active nitroglycerin (NITROSTAT) Place 0.4 mg 0 0.4 MG SL tablet under the tongue every 5 (five) minutes as needed. Active aspirin 81 MG EC tablet Take 81 mg by 0 mouth daily. Active acetaminophen-codeine Take 1 tablet 0 (TYLENOL #3) 300-30 mg by mouth 4 per tabletIndications: (four) times ESRD (end stage renal daily as disease) on dialysis needed for (HCC) Pain. Active cranberry 500 mg Take 1 tablet 0 CapIndications: ESRD (end by mouth stage renal disease) on daily. dialysis (HCC) Active calcitriol (ROCALTROL) Take 0.5 mcg 0 0.5 MCG capsule by mouth daily. Active insulin aspart Inject 10 0 protamine-insulin aspart Units (NOVOLOG MIX 70/30) 100 subcutaneousl unit/mL (70-30) Soln y 2 (two) injection times daily with breakfast and dinner (sliding scale) . Active carvedilol (COREG) 25 MG Take 1 tablet 60 tablet 3 01/26/201 tablet (25 mg total) 8 by mouth 2 (two) times daily with breakfast and dinner. Active metoclopramide HCl Take 1 tablet 30 tablet 3 10/25 /201 (REGLAN) 10 MG tablet (10 mg total) 8 by mouth 4 (four) times daily as needed for Nausea. Active NIFEdipine (PROCARDIA-XL) Take 1 tablet 30 tablet 3 60 MG (OSM) 24 hr (60 mg total) 8 tabletIndications: ESRD by mouth (end stage renal disease) daily. on dialysis (HCC) Active pantoprazole (PROTONIX) Take 1 tablet 30 tablet 3 40 MG tablet (40 mg total) 8 by mouth daily. Active amLODIPine (NORVASC) 5 MG 0 tablet 9 Active calcitriol (ROCALTROL) 0 0.5 MCG capsule 9 Active atorvastatin (LIPITOR) 80 0 MG tablet 9 Active carvedilol (COREG) 25 MG 0 tablet 9 Active metoclopramide HCl 0 (REGLAN) 10 MG tablet 9 Active NIFEdipine (PROCARDIA-XL) 0 60 MG (OSM) 24 hr tablet 9 Active nitroglycerin (NITROSTAT) 0 0.4 MG SL tablet 9 Active pantoprazole (PROTONIX) 0 20 MG tablet 9 Active acetaminophen-codeine Take 1 tablet 0 (TYLENOL #3) 300-30 mg by mouth per tablet every 4 (four) hours as needed for Pain. Active aspirin 81 MG chewable Take 81 mg by 0 tablet mouth daily. Active cranberry 400 mg Cap Take by 0 mouth. Active garlic 1 mg Cap Take by 0 mouth. Active insulin aspart Inject 0 protamine-insulin aspart subcutaneousl (NOVOLOG MIX 70/30) 100 y 2 (two) unit/mL (70-30) injection times daily with breakfast and dinner. Active multivitamin per tablet Take 1 tablet 0 by mouth daily. Active Problems Problem Noted Date Dehydration 01/23/2018 Anorexia 01/23/2018 Early satiety 01/23/2018 Weight loss 01/23/2018 Hematoma of arm, right, initial encounter 03/31/2016 End-stage renal disease (ESRD) 03/30/2016 ESRD (end stage renal disease) on dialysis 6 Acute exacerbation of chronic low back pain 01/10/20 14 Family History Medical History Relation Name Comments Unremarkable Father Unremarkable Mother Relation Name Status Comments Father Mother Social History Date Tobacco Use Types Packs/Day Years Used Former Smoker 0.25 15 Comments: quit 1992 Alcohol Use Drinks/Week oz/Week Comments No Sex Assigned at Date Recorded Not on file Industry Job Start Date Occupation Not on file Not on file Not on file Travel End Travel History Travel Start No recent travel history available. Last Filed Vital Signs Not on file Plan of Treatment Health Maintenance Due Date Last Done Comments BREAST CANCER SCREENING 1945 COLON CANCER SCREENING 1945 COLONOSCOPY MEDICARE ANNUAL WELLNESS 04/05/2009 (YEAR 2 or FIRST YEAR if no IPPE) INFLUENZA VACCINE (#1) 2019 01/06/2010, 04/2008, 01/09/2008 PNEUMOCOCCAL 65+ Completed 12/04/2015, 012, 07/01/2006 HIGH/HIGHEST RISK Implants Device Identifier Shelf Expiration Date Model / Serial / L ot Implanted Type Area Manufactur er 12/02/2014 [id number] / / [id number] Sealant,Floseal Hemostatic Matrix Cement/Gaudencio N/A: Spine ETIENNE 10ml - [id number] ler/Adhesi Lumbar BIOSCIENCE Implanted: Qty: 2 on 09/10/2013 by ve FOR Veronica Portillo MD [employer] Results Not on fileafter 12/17/2018 Insurance Payer Benefit Subscriber ID Type Phone Address Plan / Group TEXANPLUS TEXANPLUS xxxxxxxxx Maps HMO ALL Contracted [facility] [place] MGD [facility] [place] xxxxxxxxx CARE MAPS Advance Directives For more information, please contact: [facility] [address] [place] [address] Date Inactivated Comments Code Status Date Activated 10/25/2018 6:50 PM Full Code 10/24/2018 10:48 AM This code status was determined by: Patient 01/26/2018 8:19 PM Full Code 01/23/2018 8:47 PM This code status was determined by: Patient 04/01/2016 5:14 PM Full Code 03/31/2016 2:30 AM This code status was determined by: Patient 01/20/2016 10:34 AM Full Code 01/20/2016 6:59 AM This code status was determined by: Patient 01/17/2014 6:13 PM Full Code 01/09/2014 4:20 PM This code status was determined by: Patient
--- OUTSIDE RECORDS SUMMARY | 2019-12-18 11:14 | XMS REPORT | Clinical Summary ---
Author Author [employer] Address Unknown Phone Unavailable Care Team Providers Care Flour Inspector Name Role Phone Asked, No Pcp PCP Unavailable Allergies No Known Allergies Medications End Date Status Medication Sig Dispensed Refills Start Date Active amLODIPine (NORVASC) 5 mg 0 tablet 8 Active atorvastatin (LIPITOR) 80 0 MG tablet 8 Active CONTOUR TEST STRIPS strip 0 test strips 8 Active calcitriol (ROCALTROL) TAKE ONE (1) 3 01 0.5 MCG capsule CAPSULE(S) BY 8 MOUTH DAILY. Active calcium acetate (PHOSLO) 0 667 mg capsule 8 Active carvedilol (COREG) 25 MG 2 (two) times 0 06/13 tablet a day. 8 Active NOVOLOG MIX 70-30FLEXPEN Take Insulin 5 06/29 U-100 100 unit/mL (70-30) twice a day 8 insulin pen per sliding scale. Active TRUEPLUS LANCETS 28 gauge 0 misc 8 Active NIFEdipine XL (PROCARDIA 0 XL) 60 MG 24 hr tablet 8 Active pantoprazole (PROTONIX) TAKE ONE (1) 3 20 MG EC tablet TABLET(S) BY 8 MOUTH DAILY. Active aspirin 81 mg chewable Chew 1 tablet 0 tablet daily. Active cranberry 500 mg capsule Take 1 tablet 0 by mouth daily. Active garlic 1,000 mg capsule Take 1 0 capsule by mouth daily. Active nitroglycerin (NITROSTAT) Place 0.4 mg 0 /0 0.4 MG SL tablet under the 7 tongue as needed for chest pain. Active jptftkbikirf-Od-tibn-mine Take 1 tablet 0 rals tablet by mouth daily. Active ferrous sulfate 325 (65 Take 325 mg 0 FE) MG tablet by mouth 3 (three) times a week. Active glipiZIDE (GLUCOTROL) 10 Take 10 mg by 0 MG tablet mouth as needed. Active metoclopramide (REGLAN) Take 10 mg by 0 10 MG tablet mouth 4 8 (four) times a day as needed. Active ondansetron HCl (ZOFRAN Take 4 mg by 0 ORAL) mouth every 8 (eight) hours. Active Problems Problem Noted Date Other complication of arteriovenous dialysis fistula 03/13/2019 Overview: Added automatically from request for [facility] [id number] End stage renal disease 03/06/2018 Overview: [id number] Left SCV stenosis mild, Right BCV stenosis moderate 10/16/2017 CVA (cerebral vascular accident) 1994 07/19/2017 Hypertension 07/19/2017 CHF (congestive heart failure) 07/19/2017 Diabetes mellitus 07/19/2017 Hyperlipidemia 07/19/2017 Atrial fibrillation s/p Ablation 07/19/2017 ESRD (end stage renal disease) 2017 MWF 07/19/2017 Last Assessment & Plan: Assessment: -Volume flow 300 -Stenosis x2-3 -s/p 2nd stage basilic on 06/22/18 Plan: -Plan for left arm Fgram Back problem 07/19/2017 GERD (gastroesophageal reflux disease) 07/19/2017 Encounters Care Team Description Date Type Specialty Jaida Carranza MD Left arm fistulogram with angioplasty [3 6903 (CPT)] 03/20/2019 Surgery Procedural Cardiolo gy Jaida Carranza MD Other complication of arteriovenous dial ysis fistula, initial encounter ([facility]) 03/20/2019 Hospital Procedural Cardiolo gy Encounter Jaida Carranza MD 03/20/2019 Telephone Cardiovascular Jaida Carranza MD 03/19/2019 Telephone Cardiovascular Jaida Carranza MD ESRD (end stage renal disease) 2016 MWF (Primary Dx); Other complication of arteriovenous dialysis fistula, initial encounter ([facility]) 03/13/2019 Office Visit Cardiovascular Chaya Vallecillo RN ESRD (end stage renal disease) 2017 MWF (Primary Dx) 02/09/2019 Orders Only Cardiovascular after 12/17/2018 Social History Date Tobacco Use Types Packs/Day Years Used Quit: 1993 Former Smoker Smokeless Tobacco: Former User Drinks/Week oz/Week Comments Alcohol Use No Sex Assigned at Date Recorded Not on file Industry Job Start Date Occupation Not on file Not on file Not on file Travel End Travel History Travel Start No recent travel history available. Last Filed Vital Signs Reading Time Taken Comments Vital Sign 168/69 03/20/2019 4:15 PM [employer] Blood Pressure 74 03/20/2019 4:15 PM [employer] Pulse 36.6 C (97.8 F) 03/20/2019 9:45 AM [employer] Temperature 16 03/20/2019 3:15 PM [employer] Respiratory Rate 96% 03/20/2019 4:15 PM [employer] Oxygen Saturation - - Inhaled Oxygen Concentration 78.5 kg (173 lb 2 oz) 03/20/2019 10:27 AM [employer] Weight 157.5 cm (5' 2") 03/20/2019 10:27 AM [employer] Height 31.66 03/20/2019 10:27 AM [employer] Body Mass Index Plan of Treatment Health Maintenance Due Date Last Done Comments DIABETIC RETINAL EYE EXAM 1945 DIABETIC FOOT EXAM 06/24/1955 URINE MICROALBUMIN 06/24/1955 BREAST CANCER SCREENING 06/24/1995 COLONOSCOPY SCREENING 06/24/1995 SHINGLES VACCINES (#1) 06/24/1995 INFLUENZA VACCINE 01/03/2020 65+ PNEUMOCOCCAL VACCINE Completed 12/04/2015, 2011, 07/01/2006 Implants Device Identifier Shelf Expiration Date Model / Serial / L ot Implanted Type Area Manufactur er 09/20/2022 [id number] / / [id number] Clip Ligtng Weck Hemoclip Plus W/ Medical Left: Arm, TELEFLEX Tape Ti Med - [id number] Clips for Upper MEDIC AL Implanted: Qty: 1 on 04/13/2018 by Internal Jaida Carranza MD at [facility] 12/13/2022 [id number] / / [id number] Clip Ligtng Weck Hemoclip Plus W/ Medical Left: Arm, WECK Tape Ti Sm - [id number] Clips for Upper CLOSUR E Implanted: Qty: 3 on 04/13/2018 by Internal SYS Jaida Nye MD at [facility] 12/13/2022 [id number] / / [id number] Clip Ligtng Weck Hemoclip Plus W/ Medical Left: Arm, WECK Tape Ti Sm - [id number] Clips for Upper CLOSUR E Implanted: Qty: 2 on 06/22/2018 by Internal SYJaida Myrick MD at [facility] Use HOSPITAL 10/06/2022 [id number] / / [id number] Clip Ligtng Weck Hemoclip Plus W/ Medical Left: Arm, TELEFLEX Tape Ti Med - [id number] Clips for Upper MEDIC AL Implanted: Qty: 2 on 06/22/2018 by Internal Jaida Carranza MD at [facility] Use HOSPITAL 12/13/2022 [id number] / / [id number] Clip Ligtng Weck Hemoclip Plus W/ Medical Left: Arm, WECK Tape Ti Sm - [id number] Clips for Upper CLOSUR E Implanted: Qty: 1 on 06/22/2018 by Internal Jaida Joyce MD at [facility] 12/13/2022 [id number] / / [id number] Clip Ligtng Weck Hemoclip Plus W/ Medical Left: Arm, WECK Tape Ti Sm - [id number] Clips for Upper CLOSUR E Implanted: Qty: 1 on 06/22/2018 by Internal Jaida Joyce MD at [facility] [id number] / / Catheter Angio Strategic Analyst Ii 5fr 65cm Surgical N/A: N/A BSC Selc Braidd Torque [place] - Implants; PERIPHERAL [id number] Expanders; INTERVENTI Implanted: 09/27/2017 at [facility] Extenders; ON [facility] (Quantity not on file) Surgical VASCUL AR Wires JEFF Procedures Comments Procedure Name Priority Date/Time Associated Diag nosis POC GLUCOSE Routine 03/20/2019 3:37 PM [employer]PER[employer] CV INTRO CATH DIALYSIS Routine 03/20/2019 Other c omplication of CIRCUIT STENT 2:44 PM [employer]OV[employer] SUPERVISOR arteriovenous dialy sis fistula, initial encounter (HCC) Procedure Note - Jaida Carranza MD - 03/30/2019 11:55 AM [employer]PER[employer] HC COMPLETE BLD COUNT STAT 03/20/2019 W/AUTO DIFF 10:25 AM [employer]PER[employer] POC PANEL Routine 03/20/2019 10:20 AM [employer]PER[employer] ESTIMATED GFR Routine 03/20/2019 10:20 AM [employer] ECG 12-LEAD Routine 03/20/2019 10:01 AM [employer] SUPER[employer] US DUPLEX HEMODIALYSIS Routine 03/08/2019 ESRD (e nd stage renal AVG AVF ACCESS 11:31 AM [employer] SUPERVISOR disease) 2017 MWF after 12/17/2018 Results * POC glucose (03/20/2019 3:37 PM [employer] SUPERVISOR) POC glucose 66 65 - 99 mg/dL [facility] Specimen Performing Organization Address City/State/Zipcode Ph one Number [facility] DEPARTMENT OF [address] [place] [address] PATHOLOGY AND GENOMIC MEDICINE [address] * Cv invasive peripheral vascular procedure (03/20/2019 2:44 PM [employer]OVAL SUPERVISOR) Specimen Procedure Note Jaida Carranza MD - 03/30/2019 11:55 AM [employer] SUPER[employer] * CBC with platelet and differential (03/20/2019 10:25 AM [employer]OV[employer] SUPERVISOR) WBC 4.93 4.50 - 11.00 k/uL [facility] RBC 4.33 4.20 - 5.50 m/uL [facility] HGB 12.2 12.0 - 16.0 g/dL [facility] HCT 39.5 37.0 - 47.0 % [facility] MCV 91.2 82.0 - 100.0 fL [facility] MCH 28.2 27.0 - 34.0 pg [facility] MCHC 30.9 (L) 31.0 - 37.0 g/dL [facility] RDW - SD 58.4 (H) 37.0 - 55.0 fL [facility] MPV 9.7 8.8 - 13.2 fL [facility] Platelet count 156 150 - 400 k/uL [facility] Nucleated RBC 0.00 /100 WBC [facility] Neutrophils 46.9 39.0 - 69.0 % [facility] Lymphocytes 40.4 25.0 - 45.0 % [facility] Monocytes 8.5 0.0 - 10.0 % [facility] Eosinophils 2.6 0.0 - 5.0 % [facility] Basophils 1.4 (H) 0.0 - 1.0 % [facility] Immature 0.2Comment: "Immature 0.0 - 1.0 % [place] granulocytes granulocytes" (promyelocytes, METHOD IST myelocytes, metamyelocytes) HOSPITAL Specimen Blood Performing Organization Address City/[facility] Ph one Number [facility] DEPARTMENT OF [address] [place] [address] PATHOLOGY AND GENOMIC MEDICINE [address] * Estimated GFR (03/20/2019 10:20 AM [employer] REMOVAL SUPERVISOR) [facility] Estimated GFR 7 (A) mL/min/1.73 m2 [place] Comment: [facility] Interpretation G1 >=90 Normal or high G2 60-89 Mildly decreased G3a 45-59 Mildly to moderately decreased G3b 30-44 Moderately to severely decreased G4 15-29 Severely decreased G5 <15 Kidney failure The eGFR was calculated using the Chronic Kidney Disease Epidemiology Collaboration (CKD-EPI) equation. Interpretation is based on recommendations of the National Kidney Foundation-Kidney Disease Outcomes Quality Initiative (NKF-KDOQI) published in 2014. Specimen Blood Performing Organization Address City/[facility] Ph one Number [facility] DEPARTMENT OF [address] [place] [address] PATHOLOGY AND GENOMIC MEDICINE [address] * POC panel (03/20/2019 10:20 AM [employer] REMOVAL SUPERVISOR) [facility] POC sodium 134 (L) 135 - 148 mmol/L [facility] POC potassium 4.7 3.5 - 5.0 mmol/L [facility] POC chloride 96 (L) 99 - 109 mmol/L [facility] POC CO2 31 24 - 31 mmol/L [facility] POC glucose 146 (H) 65 - 99 mg/dL [facility] POC BUN 31 (H) 8 - 24 mg/dL [facility] POC creatinine 6.2 (H) 0.5 - 0.9 mg/dl [facility] POC hematocrit 44 37 - 47 % [facility] POC anion gap 14 8 - 20 mmol/L [facility] Specimen Performing Organization Address City/[facility] Ph one Number [facility] DEPARTMENT OF [address] [place] [address] PATHOLOGY AND GENOMIC MEDICINE [facility] [address] * ECG 12 lead (03/20/2019 10:01 AM [employer] SUPERVISOR) Ventricular 70 [facility] rate Atrial rate 70 [facility] MN interval 232 [facility] QRSD interval 76 [facility] QT interval 414 [facility] QTC interval 447 [facility] P axis 1 75 [facility] QRS axis 1 4 [facility] T wave axis 5 [facility] EKG impression Sinus rhythm with 1st degree [facility] AV block-Otherwise normal ECG-In automated comparison with ECG of 13-APR-2018 08:54,-No significant change was found- Specimen Narrative Performed At This result has an attachment that is n ot available. Performing Organization Address City/State/[facility] Ph one Number H MUSE [address] [place] [address] * Us duplex hemodialysis avg avf access (03/08/2019 11:31 AM [employer]OV[employer] SUPERVISOR) Specimen Narrative Performed At PERIPHERAL VASCULAR [facility]O [facility] AV Irma t - Fistula Report [address] [place] [address] [facility].Name: SHANTELL ACEVEDO at.ID: [id number] .Date: 03/08/2019 Refer.MD: JAIDA CARRANZA MD Exam Time: 10:24:00 AM Study Type:AV Graft - Fistula Age: 3 1945,73Y Sex: FEMALE Sonogrphr: Celine Cardenas RVT CPT - 4: 66470 Echo Event ID:[id number] Order ID: [id number] Reason for Study:Difficulty cannulating the left upper arm brachiobasilic AVF. Race: B SUMMARY: DUPLEX SCAN OBSERVATIONS: LEFT: The brachiobasilic AVF is well visualized in the upper arm. Disturbed, pulsatile colorflow and Dopp ler signals are noted in the feeding brachial artery, through the AV F and into the draining basilic vein. The basilic vein becomes narrow i n diameter with wall build up, hyperechoic echoes that appear to be va lve cusps and elevated velocities. The central subclavian vein appears pat ent however demonstrates a color flow bruit with elevated velociti es. VOLUME FLOW: Left brachial artery 296 m l/min AVF DIAMETER and DEPTH MEASUREMENTS: VESSEL LOCATION DIAMETER(cm) DEPTH(cm) LEFT Basilic Vein Distal upper arm 0.78 0.28 Mid upper arm 0.32 0.32 0.16(patent lumen) Proximal upper arm 0.66 0.31 PRELIMINARY FINDINGS: 1. Left mid brachial artery volume fl ow is 296 ml/min 2. <50% anastomotic stenosis of the lef t brachiobasilic AVF (ratio 1.6) 3. >50% stenosis of the left basilic ve in in the mid upper arm (ratio 5.4) 4. The left central subclavian vein skye ears patent however demonstrates a color flow bruit with el evated velocities, suggesting a >50% stenosis (ratio 4.6) PHYSICIAN INTERPRETATION: 1. Left mid brachial artery volume fl ow is 296 ml/min 2. <50% anastomotic stenosis of the lef t brachiobasilic AVF (ratio 1.6) 3. >50% stenosis of the left basilic ve in in the mid upper arm (ratio 5.4) 4. The left central subclavian vein skye ears patent however demonstrates a color flow bruit with el evated velocities, suggesting a >50% stenosis (ratio 4.6) FINDINGS: MEASUREMENTS: GRAFT Left Anastomosis Brachiobasilic:AV Fist amada Anast PSV 326 cm/s Left 2 cm Central Brachiobasilic:AV Fis anders 2 cm Central PS 146 cm/s Left Inflow Artery Brachiobasilic:AV Fi stula Inflow Artery P 207 cm/s Left Basilic Vn [place] Brachiobasil ic:AV Fistula Basilic V Conf 41 cm/s Left Basilic Prox Up Arm Brachiobasilic :AV Fistula Basilic Prox Up 97 cm/s Left Brachial Mid Brachiobasilic:AV Fis anders Brachial A Mid 220 cm/s Left Subclavian V Central Brachiobasili c:AV Fistula Subclavian V Ce 263 cm/s Left Axillary V Central Brachiobasilic: AV Fistula Axillary V Cent 49 cm/s Left Basilic Mid Up Arm Brachiobasilic: AV Fistula Basilic Mid Up 790 cm/s Left Axillary V Dist Brachiobasilic:AV Fistula Axillary V Dist 34 cm/s Left Subclavian V Dist Brachiobasilic:A V Fistula Subclavian V Di 57 cm/s DOPPLER Ax V Dist Left Ax V Dist 34 cm/s Signed 03/08/2019 1:37:00 PM David Rabago MD, FACS, RPVI Procedure Note Interface, Radiology Results In - 03/13/2019 10:52 AM [facility] PERIPHERAL VASCULAR LABORATORY AV Graft - Fistula Report [address] [place] [address] Pat.Name: SHANTELL ACEVEDO Pat.ID: [id number] .Date: 03/08/2019 Refer.MD: JAIDA CARRANZA MD Exam Time: 10:24:00 AM Study Type:AV Graft - Fistula Age: 3 1945,73Y Sex: FEMALE Sonogrphr: Celine Cardenas RVT CPT - 4: 32897 Echo Event ID:[id number] Order ID: [id number] Reason for Study:Difficulty cannulating the left upper arm brachiobasilic AVF. Race: B SUMMARY: DUPLEX SCAN OBSERVATIONS: LEFT: The brachiobasilic AVF is well visualized in the upper arm. Disturbed, pulsatile colorflow and Doppler signals are noted in the feeding brachial artery, through the AVF and into the draining basilic vein. The basilic vein becomes narrow in diameter with wall build up, hyperechoic echoes that appear to be valve cusps and elevated velocities. The central subclavian vein appears patent however demonstrates a color flow bruit with elevated velocities. VOLUME FLOW: Left brachial artery 296 ml/min AVF DIAMETER and DEPTH MEASUREMENTS: VESSEL LOCATION DIAMETER(cm) DEPTH(cm) LEFT Basilic Vein Distal upper arm 0.78 0.28 Mid upper arm 0.32 0.32 0.16(patent lumen) Proximal upper arm 0.66 0.31 PRELIMINARY FINDINGS: 1. Left mid brachial artery volume flow is 296 ml/min 2. <50% anastomotic stenosis of the left brachiobasilic AVF (ratio 1.6) 3. >50% stenosis of the left basilic vei n in the mid upper arm (ratio 5.4) 4. The left central subclavian vein appe ars patent however demonstrates a color flow bruit with elevated velocities, suggesting a >50% stenosis (ratio 4.6) PHYSICIAN INTERPRETATION: 1. Left mid brachial artery volume flow is 296 ml/min 2. <50% anastomotic stenosis of the left brachiobasilic AVF (ratio 1.6) 3. >50% stenosis of the left basilic vei n in the mid upper arm (ratio 5.4) 4. The left central subclavian vein appe ars patent however demonstrates a color flow bruit with elevated velocities, suggesting a >50% stenosis (ratio 4.6) FINDINGS: MEASUREMENTS: GRAFT Left Anastomosis Brachiobasilic:AV Fistula Anast PSV 326 cm/s Left 2 cm Central Brachiobasilic:AV Fistula 2 cm Central PS 146 cm/s Left Inflow Artery Brachiobasilic:AV Fistula Inflow Artery P 207 cm/s Left Basilic Vn [place] Brachiobasilic:AV Fistula Basilic V Conf 41 cm/s Left Basilic Prox Up Arm Brachiobasilic:AV Fistula Basilic Prox Up 97 cm/s Left Brachial Mid Brachiobasilic:AV Fistula Brachial A Mid 220 cm/s Left Subclavian V Central Brachiobasilic:AV Fistula Subclavian V Ce 263 cm/s Left Axillary V Central Brachiobasilic:AV Fistula Axillary V Cent 49 cm/s Left Basilic Mid Up Arm Brachiobasilic:AV Fistula Basilic Mid Up 790 cm/s Left Axillary V Dist Brachiobasilic:AV Fistula Axillary V Dist 34 cm/s Left Subclavian V Dist Brachiobasilic:AV Fistula Subclavian V Di 57 cm/s DOPPLER Ax V Dist Left Ax V Dist 34 cm/s Signed 03/08/2019 1:37:00 PM David Rabago MD, FACS, RPVI Performing Organization Address City/State/[facility] Ph one Number [facility] [address] [place] [address] after 12/17/2018 Insurance Type Payer Benefit Subscriber ID Effective Phone Address Plan / Dates Group HMO [employer]US TEX[employer]PLUS xxxxxxxxx 2008-Aurelia MALDONADO resent HMO [employer] xxxxxxxxx 2017-Aurelia swanson PB Advance Directives For more information, please contact: [phone] Patient Flight Steward Explanation Type Date Recorded Jul 13 2013 02:54:09:[id number] GMT Advance Directives, 04/13/2018 7:28 AM Living Will and Medical Power of Revenue Tax Specialist
--- OUTSIDE RECORDS SUMMARY | 2019-12-18 11:14 | XMS REPORT | Continuity of Care Document ---
[facility] t Organization [facility] Address [address] [place] [place] [address] Phone Unavailable Care Team Providers Care Furniture Detailer Name Role Phone Sharpless PCP Sofiya GONZALEZ, Gianni Stephenson Attphys Ruth Ann RYAN, Chaya Attphys Unavailable MARIMAR PEREA Attphys Unavailable SEYMOUR MACK Attphys Unavailable JAIDA CARRANZA Admphys Unavailable MARIMAR PEREA Admphys Unavailable SEYMOUR MACK Admphys Unavailable Payers Payer Name Policy Type Policy Number Effective Date Expiration Date Kailey ferguson [facility] x[facility] 2008 00:00:00 Gustavo Vaughan Problems Condition Name Condition Details Condition Category Status Onset Date Resolution Date Last Treatment Date Treating Clinician Comments Source Other complication of arteriovenous dialysis fistula O ther complication of arteriovenous dialysis fistula Disease Active 2019-03-13 00:00:00 Overview: Added automatically from request for surgery [id number] Gustavo Vaughan End stage renal disease End stage renal disease Disease Active 2018-03-06 00:00:00 Overview: Added automaticall y from request for surgery [id number] Gustavo Vaughan Dehydration Dehydration Disease Active 2018-01-23 00:00:00 [facility] Anorexia Anorexia Disease Active 2018-01-23 00:00:00 [facility] Early satiety Early satiety Disease Active 2018-01-23 00:00:00 [facility] Weight loss Weight loss Disease Active 2018-01-23 00:00:00 [facility] Left SCV stenosis mild, Right BCV stenosis moderate Le ft SCV stenosis mild, Right BCV stenosis moderate Disease Active 2017-10-16 00:00:00 Gustavo Vaughan CVA (cerebral vascular accident) 1994 CVA (cerebral vascular accident) 1994 Disease Active 2017-07-19 00:00:00 Gustavo Vaughan Hypertension Hypertension Disease Active 2017-07-19 00:00:00 Gustavo Vaughan CHF (congestive heart failure) CHF (congestive heart failure) Disea se Active 2017-07-19 00:00:00 Gustavo Vaughan Diabetes mellitus Diabetes mellitus Disease Active 2017-07-19 00:00:00 Gustavo Vaughan Hyperlipidemia Hyperlipidemia Disease Active 2017-07-19 00:00:00 Gustavo Vaughan Atrial fibrillation s/p Ablation Atrial fibrillation s/p Ablatio n Disease Active 2017-07-19 00:00:00 Margarita Vaughan ESRD (end stage renal disease) 2017 MWF ESRD (end stage mejia l disease) 2017 MWF Disease Active 2017-07-19 00:00:00 Last Assessment & Plan: Assessment:- Volume flow 300-Stenosis x2-3-s/p 2nd stage basilic on 06/22/18Plan:-Plan for left arm Fgram Gustavo Vaughan Back problem Back problem Disease Active 2017-07-19 00:00:00 Gustavo Vaughan GERD (gastroesophageal reflux disease) GERD (gastroesophagea l reflux disease) Disease Active 2017-07-19 00:00:00 Gustavo Vaughan Hematoma of arm, right, initial encounter Hematoma of arm, right, initial encounter Disease Active 2016-03-31 00:00:00 [facility] End-stage renal disease (ESRD) End-stage renal disease (ESRD) Disea se Active 2016-03-30 00:00:00 [facility] ESRD (end stage renal disease) on dialysis ESRD (end s tage renal disease) on dialysis Disease Active 2016-01-20 00:00:00 [facility] Acute exacerbation of chronic low back pain Acute exac erbation of chronic low back pain Disease Active 2014-01-09 00:00:00 I [facility] Allergies, Adverse Reactions, Alerts This patient has no known allergies or adverse reactions. Family History Family Member Diagnosis Comments Start Date Stop Date Source Natural father Unremarkable [facility] Natural mother Unremarkable [facility] Social History Social Habit Start Date Stop Date Quantity Comments Source History of tobacco use Current smoker Gustavo Vaughan Sex [facility] Cigarettes smoked current (pack per day) - Reported 00:00:00 2019-08-07 00:00:00 [facility] Cigarette pack-years 2019-08-07 00:00:00 2019-08-07 00:00:00 [facility] Alcohol intake 2019-04-02 00:00:00 2019-04-02 00:00:00 Current non-drinker of alcohol (finding) Gustavo Vaughan Tobacco Comment 2016-03-31 00:00:00 2016-03-31 00:00:00 quit 1993 [facility] Smoking Status Start Date Stop Date Source Former smoker 2019-04-02 00:00:00 2019-04-02 00:00:00 Gustavo Vaughan Medications Ordered Medication Name Filled Medication Name Start Date Stop Da te Current Medication? Ordering Clinician Indication Dosage Frequency Signature (SIG) Comments Components Source aspirin 81 mg chewable tablet 2019-03-20 16:47:12 Yes 1{tbl} QD Chew 1 tablet daily. Gustavo Vaughan cranberry 500 mg capsule 2019-03-20 16:47:12 Yes 1{tbl} QD Take 1 tablet by mouth daily. Gustavo Vaughan garlic 1,000 mg capsule 2019-03-20 16:47:12 Yes 1{capsule} QD Take 1 capsule by mouth daily. Gustavo lechuga lbqksgtuvknf-Pq-cjay-minerals tablet 2019-03-20 16:47:12 Ye s 1{tbl} QD Take 1 tablet by mouth daily. Gustavo granados ferrous sulfate 325 (65 FE) MG tablet 2019-03-20 16:47:12 Yes 325mg Q.[id number] Take 325 mg by mouth 3 (three) times a week. Gustavo Vaughan glipiZIDE (GLUCOTROL) 10 MG tablet 2019-03-20 16:47:12 Yes 10mg Take 10 mg by mouth as needed. Gustavo Sesay ist ondansetron HCl (ZOFRAN ORAL) 2019-03-20 16:47:12 Yes 4mg Q8H Take 4 mg by mouth every 8 (eight) hours. Gustavo Sesayist insulin aspart protamine-insulin aspart (NOVOLOG MIX 70/30) 100 unit/mL (70-30) injection 2018-10-24 07:59:16 Yes Inject subcutaneously 2 (two) times daily with breakfast and dinner. [facility] multivitamin per tablet 2018-10-24 07:59:16 Yes 1{tbl} QD Take 1 tablet by mouth daily. [facility] acetaminophen-codeine (TYLENOL #3) 300-30 mg per tablet 2018-10-24 07:59:15 Yes 1{tbl} Take 1 tablet b y mouth every 4 (four) hours as needed for Pain. [facility] aspirin 81 MG chewable tablet 2018-10-24 07:59:15 Yes 81mg QD Take 81 mg by mouth daily. [facility] cranberry 400 mg Cap 2018-10-24 07:59:15 Yes Take by mouth. [facility] garlic 1 mg Cap 2018-10-24 07:59:15 Yes Take by mouth. [facility] amLODIPine (NORVASC) 5 MG tablet 2018-09-19 00:00:00 Yes [facility] NIFEdipine (PROCARDIA-XL) 60 MG (OSM) 24 hr tablet 2018-09 00:00:[address] [facility] calcitriol (ROCALTROL) 0.5 MCG capsule 2018-09-06 00:00:00 Yes [facility] atorvastatin (LIPITOR) 80 MG tablet 2018-08-29 00:00:00 Yes [facility] carvedilol (COREG) 25 MG tablet 2018-08-29 00:00:00 Yes [facility] metoclopramide HCl (REGLAN) 10 MG tablet 2018-08-29 00:00[facility] 0.4 MG SL tablet 2018-08-29 00:00:00 Yes [facility] pantoprazole (PROTONIX) 20 MG tablet 2018-08-29 00:00:00 Yes [facility] carvedilol (COREG) 25 MG tablet 2018-01-26 00:00:00 Yes 25mg Take 1 tablet (25 mg total) by mouth 2 (two) times daily with breakfast and dinner. [facility] metoclopramide HCl (REGLAN) 10 MG tablet 2018-01-26 00:00:00 Yes 10mg Take 1 tablet (10 mg total) by mouth 4 (four) times daily as needed for Nausea. [facility] r NIFEdipine (PROCARDIA-XL) 60 MG (OSM) 24 hr tablet 2018-01 00:00:00 Yes ESRD (end stage renal disease) on dialysis (HCC) 60mg QD Take 1 tablet (60 mg total) by mouth daily. [facility] pantoprazole (PROTONIX) 40 MG tablet 2018-01-26 00:00:00 Ye s 40mg QD Take 1 tablet (40 mg total) by mouth daily. [facility] metoclopramide (REGLAN) 10 MG tablet 2018-01-26 00:00:00 Ye s 10mg Q.25D Take 10 mg by mouth 4 (four) times a day as needed. Gustavo Vaughan calcitriol (ROCALTROL) 0.5 MCG capsule 2018-01-23 20:44:45 Yes .5ug QD Take 0.5 mcg by mouth daily. [facility] insulin aspart protamine-insulin aspart (NOVOLOG MIX 70/30) 100 unit/mL (70-30) Soln injection 2018-01-23 20:44:45 Yes 10U Inject 10 Units subcutaneously 2 (two) times daily with breakfast and dinner (sliding scale) . [facility] amLODIPine (NORVASC) 5 mg tablet 2017-07-15 00:00:00 Yes Gustavo Vaughan pantoprazole (PROTONIX) 20 MG EC tablet 2017-06-30 00:00:00 Yes TAKE ONE (1) TABLET(S) BY MOUTH DAILY. Mary Beth Vaughan NOVOLOG MIX 70-30FLEXPEN U-100 100 unit/mL (70-30) insulin p en 2017-06-29 00:00:00 Yes Take Insulin twice a day per sliding scale. Gustavo Vaughan calcitriol (ROCALTROL) 0.5 MCG capsule 2017-06-28 00:00:00 Yes TAKE ONE (1) CAPSULE(S) BY MOUTH DAILY. Margarita Vaughan atorvastatin (LIPITOR) 80 MG tablet 2017-06-13 00:00:00 Yes Gustavo Vaughan carvedilol (COREG) 25 MG tablet 2017-06-13 00:00:00 Yes Q.5D 2 (two) times a day. Gustavo Vaughan NIFEdipine XL (PROCARDIA XL) 60 MG 24 hr tablet 2017-06-13 00:00 :[address] CONTOUR TEST STRIPS strip test strips 2017-05-30 00:00:00 Yes Gustavo Vaughan TRUEPLUS LANCETS 28 gauge misc 2017-05-30 00:00:00 Yes Gustavo Vaughan calcium acetate (PHOSLO) 667 mg capsule 2017-04-30 00:00:00 Ye s Gustavo Vaughan nitroglycerin (NITROSTAT) 0.4 MG SL tablet 2016-08-10 00:00:[address] 0.4 mg under the tongue as needed for chest pain. Gustavo Vaughan atorvastatin (LIPITOR) 40 MG tablet 2016-01-01 08:15:12 Yes 80mg QD Take 80 mg by mouth daily . [facility] acetaminophen-codeine (TYLENOL #3) 300-30 mg per tablet 2016-01-01 08:15:11 Yes ESRD (end stage renal disease) on dialysis ([facility]) 1{tbl } Take 1 tablet by mouth 4 (four) times daily as needed for Pain. [facility] cranberry 500 mg Cap 2016-01-01 08:15:11 Yes ESRD (end stage renal disease) on dialysis ([facility]) 1{tbl} QD Take 1 tablet by mouth daily. [facility] aspirin 81 MG EC tablet 2014-01-09 14:53:30 Yes 81mg QD Take 81 mg by mouth daily. [facility] multivitamin capsule 2013-08-15 11:20:50 Yes 1{capsule} QD Take 1 capsule by mouth daily. [facility] nitroglycerin (NITROSTAT) 0.4 MG SL tablet 2013-08-15 11:20:[address] 0.4 mg under the tongue every 5 (five) minutes as needed. [facility] garlic 1,000 mg Cap 2013-08-15 11:20:49 Yes Take by mouth. [facility] Vital Signs Vital Name Observation Time Observation Value Comments Source Systolic blood pressure 2019-03-20 16:15:00 168 mm[Hg] Gustavo Vaughan Diastolic blood pressure 2019-03-20 16:15:00 69 mm[Hg] Gustavo Vaughan Heart rate 2019-03-20 16:15:00 74 /min Gustavo Vaughan Oxygen saturation in Arterial blood by Pulse oximetry 2018-04 16:15:00 96 /min Gustavo Vaughan Respiratory rate 2019-03-20 15:15:00 16 /min [address] Vaughan Body height 2019-03-20 10:27:00 157.5 cm Gustavo Vaughan Body weight 2019-03-20 10:27:00 78.529 kg Gustavo Vaughan BMI 2019-03-20 10:27:00 31.66 kg/m2 Gustavo Vaughan Body temperature 2019-03-20 09:45:00 36.56 [facility] Procedures Procedure Date / Time Performed Performing Clinician Sourc e POC GLUCOSE 2019-03-20 15:37:00 Jaida Carranza [facility] CV INTRO CATH DIALYSIS CIRCUIT STENT 2019-03-20 14:44:53 Jaida Carranza HC COMPLETE BLD COUNT W/AUTO DIFF 2019-03-20 10:25:00 Mary Kay Carranza ESTIMATED GFR 2019-03-20 10:20:00 Jaida Carranza thodist POC PANEL 2019-03-20 10:20:00 Jaida Carranza thodist ECG 12-LEAD 2019-03-20 10:01:21 Jaida Carranza thodist US DUPLEX HEMODIALYSIS AVG AVF ACCESS 2019-03-08 11:31:09 Jaida Carranza Plan of Care Planned Activity Planned Date Details Comments Source Future Scheduled Test 2020-01-03 00:00:00 INFLUENZA VACCINE [code = INFLUENZA VACCINE] Gustavo Vaughan Future Scheduled Test 2019-12-04 00:00:00 INFLUENZA VACCINE (#1) [code = INFLUENZA VACCINE (#1)] [facility] Future Scheduled Test 2009-04-05 00:00:00 MEDICARE ANNUAL WE LLNESS (YEAR 2 or FIRST YEAR if no IPPE) [code = MEDICARE ANNUAL WELLNESS (YEAR 2 or FIRST YEAR if no IPPE)] [facility] Future Scheduled Test 1995-06-24 00:00:00 BREAST CANCER SCRE ENING [code = BREAST CANCER SCREENING] [facility] Future Scheduled Test 1995-06-24 00:00:00 COLONOSCOPY SCREEN ING [code = COLONOSCOPY SCREENING] [facility] Future Scheduled Test 1995-06-24 00:00:00 SHINGLES VACCINES (#1) [code = SHINGLES VACCINES (#1)] [facility] Future Scheduled Test 1955-06-24 00:00:00 DIABETIC FOOT EXAM [code = DIABETIC FOOT EXAM] [facility] Future Scheduled Test 1955-06-24 00:00:00 URINE MICROALBUMIN [code = URINE MICROALBUMIN] [facility] Future Scheduled Test 1945 00:00:00 Screening for sushma gnant neoplasm of breast (procedure) [code = 000211383] [facility] [place] Future Scheduled Test 1945 00:00:00 Screening for sushma gnant neoplasm of colon (procedure) [code = 971575194[facility] [place] [facility] 00:00:00 DIABETIC RETINAL E YE EXAM [code = DIABETIC RETINAL EYE EXAM] Gustavo Vaughan Encounters Start Date/Time End Date/Time Encounter Type Admission Type [email or web address] Care Department Encounter ID Source 2019-03-20 00:00:00 2019-03-20 00:00:00 Outpatient JAIDA CARRANZA 021 [id number] Gustavo Vaughan Results Test Description Test Time Test Comments Results Result Comments Source Cv invasive peripheral vascular procedure 2019-03-27 14:01:59 Jaida Carranza MD - 03/30/2019 11:55 AM [employer] Gustavo Vaguhan ECG 12 lead 2019-03-20 21:46:47 Test Item Ventricular rate (test code = 253) 70 Atrial rate (test code = 255) 70 VT interval (test code = 266) 232 QRSD interval (test code = 260) 76 QT interval (test code = 264) 414 QTC interval (test code = 265) 447 P axis 1 (test code = 267) 75 QRS axis 1 (test code = 268) 4 T wave axis (test code = 270) 5 EKG impression (test code = 273) Sinus rhythm with 1st degree AV block-Otherwise normal ECG-In automated comparison with ECG of 13-APR-2018 08:54,-No significant change was found- [facility] [id number] 15:40:24* Test Item Value Reference Range Interpretation Comments POC glucose (test code = 44446-5) 66 mg/dL 65-99 [facility] with platelet and [id number] 10:36:14* Test Item Value Reference Range Interpretation Comments WBC (test code = 42783-9) 4.93 4.50- 11.00 k/uL RBC (test code = 96745-5) 4.33 m/uL 4.2-5.5 HGB (test code = 718-7) 12.2 g/dL 12-16 HCT (test code = 4544-3) 39.5 % 37-47 MCV (test code = 787-2) 91.2 fL 82-100 MCH (test code = 785-6) 28.2 pg 27-34 MCHC (test code = 786-4) 30.9 g/dL 31-37 L RDW - SD (test code = 69599-9) 58.4 fL 37-55 H MPV (test code = 11604-5) 9.7 fL 8.8-13.2 Platelet count (test code = 68644-3) 156 150- 400 k/uL Nucleated RBC (test code = 80793-0) 0.00 /100 WBC Neutrophils (test code = 71824-4) 46.9 % 39-69 Lymphocytes (test code = 29383-4) 40.4 % 25-45 Monocytes (test code = 18523-9) 8.5 % 0-10 Eosinophils (test code = 99720-8) 2.6 % 0-5 Basophils (test code = 59174-0) 1.4 % 0-1 H Immature granulocytes (test code = 70420-2) 0.2 % 0-1 "Immature granulocytes" (promyelocytes, myelocytes, metamyelocytes) Lab Interpretation (test code = 30253-9) [facility] [id number] 10:22:52* Test Item Value Reference Range Interpretation Comments POC sodium (test code = 2947-0) 134 mmol/L 135-148 L POC potassium (test code = 6298-4) 4.7 mmol/L 3.5-5 POC chloride (test code = 2069-3) 96 mmol/L 99-109 L POC CO2 (test code = 89699-9) 31 mmol/L 24-31 POC glucose (test code = 2339-0) 146 mg/dL 65-99 H POC BUN (test code = 6299-2) 31 mg/dL 8-24 H POC creatinine (test code = 30243-9) 6.2 mg/dl 0.5-0.9 H POC hematocrit (test code = 4544-3) 44 % 37-47 POC anion gap (test code = 4911554) 14 mmol/L 8-20 Lab Interpretation (test code = 32500-1) [facility]normal [facility] [id number] 10:22:52* Test Item Value Reference Range Interpretation Comments Estimated GFR (test code = 03431-9) 7 mL/min/1.73 m2 A Catergory Units InterpretationG1 >=90 Normal or highG2 60-89 Mildly brkooktuyI2w 45-59 Mildly to moderately dtrmwiefxV0c 30-44 Moderately to severely decreasedG4 15-29 Severely decreasedG5 <15 Kidney failureThe eGFR was calculated using the Chronic Kidney Disease Epidemiology Collaboration (CKD-EPI) equation. Interpretation is based on recommendations of the National Kidney Foundation-Kidney Disease Outcomes Quality Initiative (NKF-KDOQI) published in 2014. Lab Interpretation (test code = 37086-3) Abnormal [facility], [facility]UNT, CATH INTRO WITH [id number] 16:47:00Reason for Exam:->N18.6FINAL REPORT AV shunt evaluation. History: Renal failure, malfunctioning left upper extremity AV fistula. Modality: Fluoroscopy. Power System Dispatcher: Zhang Sewell MD. Plant Clerk: None. Sedation: None. Approach: Left upper extremity AV fistula. Estimated blood loss: < 5 cc. Specimen: None. Fluoroscopy Time: 2.3 min.Reference Air Kerma (Ka, r): 13.9 mGy. Technique: Informed written consent was obtained. Discussion of risks, benefits, and alternatives were made with the patient. The patient expressed understanding and agreed to proceed. A universal timeout was performed prior to starting the procedure. All elements maximal sterile barrier technique was utilized for this procedure, including utilization of sterile scrub solution for skin prep, a large sterile sheet to cover the areas of the patient that were not prepped, and hand hygiene, mask, head covering, and sterile gown for performing radiologist and scrub technologist. 2% lidocaine was given locally for anesthesia. The left upper extremity AV fistula was accessed with a 21-gauge micropuncture needle towards the central venous system. A 0.018 wire was advanced centrally. A 4 Albanian micropuncture sheath was placed. DSA runs of the left arm and central venous system were performed. Reflux evaluation of the arterial anastomosis was performed. The micropuncture sheath was removed and hemostasis achieved with manual compression. Additional retrograde access was obtained within the left upper extremity AV fistula with a 21-gauge micropuncture needle. A 0.018 wire was advanced through the needle. The needle was exchanged for a 4 Albanian micropuncture sheath. Using a 0.035 angled Glidewire and 4 Albanian Quesada catheter, access to the feeding brachial artery was obtained. The Glidewire was exchanged for a 0.035 Bentson wire. A 6 Albanian short vascular sheath was placed. The high-grade focal stenosis within the draining vein was then treated with a 5 mm x 3 cm [facility] over the wire balloon. Post angioplasty angiography was performed. All catheters and wires were removed. The sheath was removed and hemostasis achieved using 2-0 chromic pursestring suture. A sterile dressing was applied. The patient received a total of 3000 units of heparin intravenously during the course of the procedure. The patient toward the procedure well without immediate complication. FINDINGS: 1. Left upper extremity arteriovenous fistula evaluation demonstrates high-grade (greater than 70%) focal stenosis within the draining vein slightly central to the arterial anastomosis.2. Successful angioplasty of the focal stenosis within the draining vein using a 5 mm x 3 cm balloon. Post angioplasty angiography demonstrates significant improvement in appearance with no significant residual stenosis.3. P atent left central veins and arterial anastomosis. IMPRESSION: Succ essful left upper extremity arteriovenous fistula evaluation and angioplasty of high-grade focal stenosis within the draining vein as detailed above. Signed: Zhang Sewell MDReport Verified David e/Time: 10/24/2018 16:47:01 Reading Location: [facility] P048 Angio Body Reading Ro om C METABOLIC [id number] 06:58:00* Test Item Value Reference Range Interpretation Comments SODIUM (BEAKER) (test code = 381) 137 meq/L 136-145 POTASSIUM (BEAKER) (test code = 379) 5.5 meq/L 3.5-5.1 H CHLORIDE (BEAKER) (test code = 382) 97 meq/L 98-107 L CO2 (BEAKER) (test code = 355) 29 meq/L 22-29 BLOOD UREA NITROGEN (BEAKER) (test code = 354) 32 mg/dL 7-21 H CREATININE (BEAKER) (test code = 358) 6.51 mg/dL 0.57-1.25 H GLUCOSE RANDOM (BEAKER) (test code = 652) 126 mg/dL 70-105 H CALCIUM (BEAKER) (test code = 697) 10.6 mg/dL 8.4-10.2 H EGFR (BEAKER) (test code = 1092) 8 mL/min/1.73 sq m ESTIMATED GFR IS NOT ACCURATE CREATININE CLEARANCE IN PREDICTING GLOMERULAR FILTRATION RATE. ESTIMATED GFR IS NOT APPLICABLE FOR DIALYSIS PATIENTS. [id number] 06:44:00* Test Item Value Reference Range Interpretation Comments PARTIAL THROMBOPLASTIN TIME (BEAKER) (test code = 760) 33.2 seconds 22.5-36.0 PROTHROMBIN TIME/[id number] 06:43:00* Test Item Value Reference Range Interpretation Comments PROTIME (BEAKER) (test code = 759) 12.9 seconds 11.9-14.2 INR (BEAKER) (test code = 370) 1.0 <=5.9 Effective 08/30/2018: PT Reference Range ChangeNew: 11.9-14.2 Previous: 11.7-14. 7RECOMMENDED COUMADIN/WARFARIN INR THERAPY RANGESSTANDARD DOSE: 2.0-3.0 Include s: PROPHYLAXIS for venous thrombosis, systemic embolization; TREATMENT for venou s thrombosis and/or pulmonary embolus.HIGH RISK: Target INR is 2.5-3.5 for patie nts wiht mechanical heart valves.CBC W/PLT COUNT & AUTO [id number] 06:34:00* Test Item Value Reference Range Interpretation Comments WHITE BLOOD CELL COUNT (BEAKER) (test code = 775) 7.9 K/ L 3.5- 10.5 RED BLOOD CELL COUNT (BEAKER) (test code = 761) 4.51 M/ L 3.93-5 .22 HEMOGLOBIN (BEAKER) (test code = 410) 13.3 GM/DL 11.2-15.7 HEMATOCRIT (BEAKER) (test code = 411) 42.1 % 34.1-44.9 MEAN CORPUSCULAR VOLUME (BEAKER) (test code = 753) 93.3 fL 79. 4-94.8 MEAN CORPUSCULAR HEMOGLOBIN (BEAKER) (test code = 751) 29.5 pg 25.6-32.2 MEAN CORPUSCULAR HEMOGLOBIN CONC (BEAKER) (test code = 752) 31.6 GM/DL 32.2-35.5 L RED CELL DISTRIBUTION WIDTH (BEAKER) (test code = 412) 18.8 % 11.7-14.4 H PLATELET COUNT (BEAKER) (test code = 756) 209 K/CU MM 150-450 MEAN PLATELET VOLUME (BEAKER) (test code = 754) 11.3 fL 9.4-12 .3 NUCLEATED RED BLOOD CELLS (BEAKER) (test code = 413) 0 /100 WBC 0 -0 NEUTROPHILS RELATIVE PERCENT (BEAKER) (test code = 429) 52 % LYMPHOCYTES RELATIVE PERCENT (BEAKER) (test code = 430) 36 % MONOCYTES RELATIVE PERCENT (BEAKER) (test code = 431) 8 % EOSINOPHILS RELATIVE PERCENT (BEAKER) (test code = 432) 3 % BASOPHILS RELATIVE PERCENT (BEAKER) (test code = 437) 1 % NEUTROPHILS ABSOLUTE COUNT (BEAKER) (test code = 670) 4.09 K/ L 1.56-6.13 LYMPHOCYTES ABSOLUTE COUNT (BEAKER) (test code = 414) 2.81 K/ L 1.18-3.74 MONOCYTES ABSOLUTE COUNT (BEAKER) (test code = 415) 0.66 K/ L 0. 24-0.36 H EOSINOPHILS ABSOLUTE COUNT (BEAKER) (test code = 416) 0.21 K/ L 0.04-0.36 BASOPHILS ABSOLUTE COUNT (BEAKER) (test code = 417) 0.10 K/ L 0. 01-0.08 H IMMATURE GRANULOCYTES-RELATIVE PERCENT (BEAKER) (test code = 2801) 0 % 0-1 TISSUE [id number] 19:02:00Surgical Pathology Report Case: [id number] Authorizing Provider: Ariane Hudson MD Collected: 01/25/2018 1153 Ordering Location: [address] Received: 01/25/2018 1609 Service Pathologist: Luzma Nunez MD Specimens: A) - Duodenum B) - Antrum A. SMALL BOWEL, DUODENUM, BIOPSY: - DUODENAL MUCOSA WITH NO SIGNIFICANT PATHOLOGIC ALTERATIONB. STOMACH, ANTRUM, BIOPSY: - ANTRAL TYPE GASTRIC MUCOSA WITH CHRONIC ACTIVE GASTRITIS, MILD - NO HELICOBACTER PYLORI ORGANISMS SEEN ON WARTHIN-STARRY STAIN OR IMMUNOHISTOCHEMICAL STAIN. Signing Pathologist Direct Phone Line: [phone] signed by Luzma Nunez MD on 01/27/2018 at 7:02 [id number] X [id number], [id number], [id number] A. Duodenum; B. Antrum The specimen is received in two containers of formalin both labeled with the patient's information. Part A labeled "duodenum" consists of a 0.2 cm fragment of storey tissue submitted A1. Part B labeled "antrum" consists of a 0.4 cm fragment of storey tissue, submitted B1. CG/pl A-B. Performed.The following special studies were performed on this case and the interpretation is incorporated in the diagnostic report above: Warthin-Starry stain (negative); Helicobacter pylori immunohistochemical stain (negative).The immunohistochemistry test was developed and its performance characteristics determined by [facility], Pathology Laboratory. It has not been cleared or approved by the U.S. Food and Drug Administration. The FDA has determined that such clearance or approval is not necessary. The test is used for clinical purposes. It should not be regarded as investigational or for research. This laboratory is certified under the Clinical Laboratory Improvement Amendments of 1988 (CLIA-88) as qualified to perform high complexity clinical laboratory testing.POCT-GLUCOSE [id number] 13:26:00* Test Item Value Reference Range Interpretation Comments POC-GLUCOSE METER (BEAKER) (test code = 1538) 118 mg/dL 70-110 H TESTED AT [facility] [address] [facility] [address] POCT-GLUCOSE [id number] 12:24:00* Test Item Value Reference Range Interpretation Comments POC-GLUCOSE METER (BEAKER) (test code = 1538) 107 mg/dL 70-110 TESTED AT [place] [id number] [facility] [address] POCT-GLUCOSE [id number] 07:39:00* Test Item Value Reference Range Interpretation Comments POC-GLUCOSE METER (BEAKER) (test code = 1538) 102 mg/dL 70-110 TESTED AT [address] [address] BASIC METABOLIC [id number] 06:11:00* Test Item Value Reference Range Interpretation Comments SODIUM (BEAKER) (test code = 381) 139 meq/L 136-145 POTASSIUM (BEAKER) (test code = 379) 3.8 meq/L 3.5-5.1 CHLORIDE (BEAKER) (test code = 382) 103 meq/L 98-107 CO2 (BEAKER) (test code = 355) 27 meq/L 22-29 BLOOD UREA NITROGEN (BEAKER) (test code = 354) 30 mg/dL 7-21 H CREATININE (BEAKER) (test code = 358) 7.74 mg/dL 0.57-1.25 H GLUCOSE RANDOM (BEAKER) (test code = 652) 86 mg/dL 70-105 CALCIUM (BEAKER) (test code = 697) 8.8 mg/dL 8.4-10.2 EGFR (BEAKER) (test code = 1092) 6 mL/min/1.73 sq m ESTIMATED GFR IS NOT ACCURATE CREATININE CLEARANCE IN PREDICTING GLOMERULAR FILTRATION RATE. ESTIMATED GFR IS NOT APPLICABLE FOR DIALYSIS PATIENTS. CBC W/PLT COUNT & AUTO [id number] 05:43:00* Test Item Value Reference Range Interpretation Comments WHITE BLOOD CELL COUNT (BEAKER) (test code = 775) 6.9 K/ L 3.5- 10.5 RED BLOOD CELL COUNT (BEAKER) (test code = 761) 3.52 M/ L 3.93-5 .22 L HEMOGLOBIN (BEAKER) (test code = 410) 10.0 GM/DL 11.2-15.7 L HEMATOCRIT (BEAKER) (test code = 411) 32.1 % 34.1-44.9 L MEAN CORPUSCULAR VOLUME (BEAKER) (test code = 753) 91.2 fL 79. 4-94.8 MEAN CORPUSCULAR HEMOGLOBIN (BEAKER) (test code = 751) 28.4 pg 25.6-32.2 MEAN CORPUSCULAR HEMOGLOBIN CONC (BEAKER) (test code = 752) 31.2 GM/DL 32.2-35.5 L RED CELL DISTRIBUTION WIDTH (BEAKER) (test code = 412) 17.8 % 11.7-14.4 H PLATELET COUNT (BEAKER) (test code = 756) 124 K/CU MM 150-450 L MEAN PLATELET VOLUME (BEAKER) (test code = 754) 10.6 fL 9.4-12 .3 NUCLEATED RED BLOOD CELLS (BEAKER) (test code = 413) 0 /100 WBC 0 -0 NEUTROPHILS RELATIVE PERCENT (BEAKER) (test code = 429) 44 % LYMPHOCYTES RELATIVE PERCENT (BEAKER) (test code = 430) 40 % MONOCYTES RELATIVE PERCENT (BEAKER) (test code = 431) 11 % EOSINOPHILS RELATIVE PERCENT (BEAKER) (test code = 432) 3 % BASOPHILS RELATIVE PERCENT (BEAKER) (test code = 437) 1 % NEUTROPHILS ABSOLUTE COUNT (BEAKER) (test code = 670) 3.04 K/ L 1.56-6.13 LYMPHOCYTES ABSOLUTE COUNT (BEAKER) (test code = 414) 2.76 K/ L 1.18-3.74 MONOCYTES ABSOLUTE COUNT (BEAKER) (test code = 415) 0.77 K/ L 0. 24-0.36 H EOSINOPHILS ABSOLUTE COUNT (BEAKER) (test code = 416) 0.22 K/ L 0.04-0.36 BASOPHILS ABSOLUTE COUNT (BEAKER) (test code = 417) 0.07 K/ L 0. 01-0.08 IMMATURE GRANULOCYTES-RELATIVE PERCENT (BEAKER) (test code = 2801) 0 % 0-1 POCT-GLUCOSE [id number] 21:27:00* Test Item Value Reference Range Interpretation Comments POC-GLUCOSE METER (BEAKER) (test code = 1538) 195 mg/dL 70-110 H TESTED AT [address] [address] POCT-GLUCOSE [id number] 17:55:00* Test Item Value Reference Range Interpretation Comments POC-GLUCOSE METER (BEAKER) (test code = 1538) 259 mg/dL 70-110 H TESTED AT [address] [address] [id number] 16:51:00* Test Item Value Reference Range Interpretation Comments FERRITIN (BEAKER) (test code = 361) 1371 ng/mL 5-275 H HEPARIN [id number] 13:31:00* Test Item Value Reference Range Interpretation Comments HEPARIN ANTIBODY (BEAKER) (test code = 646) Negative Negative HEPARIN ANTIBODY OD (BEAKER) (test code = 2659) 0.099 <0.400 4T TOTAL SCORE (BEAKER) (test code = 2661) 4 Probability of HIT based on scoring system: 6-8 = High probability; 4-5 = inter mediate probability; 0-3 = low probabilityPOCT-GLUCOSE [id number] 12:44:00 * Test Item Value Reference Range Interpretation Comments POC-GLUCOSE METER (BEAKER) (test code = 1538) 147 mg/dL 70-110 H TESTED AT [address] [address] POCT-GLUCOSE [id number] 08:53:00* Test Item Value Reference Range Interpretation Comments POC-GLUCOSE METER (BEAKER) (test code = 1538) 126 mg/dL 70-110 H TESTED AT [address] [address] VITAMIN B12 AND [id number] 06:46:00* Test Item Value Reference Range Interpretation Comments VITAMIN B12 (BEAKER) (test code = 774) > pg/mL 213-816 H FOLATE (BEAKER) (test code = 362) 12.5 ng/mL >=7.0 BASIC METABOLIC [id number] 06:05:00* Test Item Value Reference Range Interpretation Comments SODIUM (BEAKER) (test code = 381) 138 meq/L 136-145 POTASSIUM (BEAKER) (test code = 379) 3.7 meq/L 3.5-5.1 CHLORIDE (BEAKER) (test code = 382) 103 meq/L 98-107 CO2 (BEAKER) (test code = 355) 27 meq/L 22-29 BLOOD UREA NITROGEN (BEAKER) (test code = 354) 20 mg/dL 7-21 CREATININE (BEAKER) (test code = 358) 5.79 mg/dL 0.57-1.25 H GLUCOSE RANDOM (BEAKER) (test code = 652) 101 mg/dL 70-105 CALCIUM (BEAKER) (test code = 697) 9.2 mg/dL 8.4-10.2 EGFR (BEAKER) (test code = 1092) 9 mL/min/1.73 sq m ESTIMATED GFR IS NOT ACCURATE CREATININE CLEARANCE IN PREDICTING GLOMERULAR FILTRATION RATE. ESTIMATED GFR IS NOT APPLICABLE FOR DIALYSIS PATIENTS. IRON, TIBC, % SAT. (WITHOUT FERRITIN)2018-01-25 05:54:00* Test Item Value Reference Range Interpretation Comments IRON (BEAKER) (test code = 547) 111 ug/dL 40-160 TOTAL IRON BINDING CAPACITY (BEAKER) (test code = 769) 156 ug/dL 250-450 L IRON % SATURATION (2) (BEAKER) (test code = 2590) 71 % 20-5 5 H CALCIUM, [id number] 05:49:00* Test Item Value Reference Range Interpretation Comments CALCIUM IONIZED (BEAKER) (test code = 698) 1.04 mmol/L 1.12-1.27 L PH, BLOOD (BEAKER) (test code = 1810) 7.50 CBC W/PLT COUNT & AUTO [id number] 05:31:00* Test Item Value Reference Range Interpretation Comments WHITE BLOOD CELL COUNT (BEAKER) (test code = 775) 5.9 K/ L 3.5- 10.5 RED BLOOD CELL COUNT (BEAKER) (test code = 761) 3.75 M/ L 3.93-5 .22 L HEMOGLOBIN (BEAKER) (test code = 410) 10.7 GM/DL 11.2-15.7 L HEMATOCRIT (BEAKER) (test code = 411) 34.2 % 34.1-44.9 MEAN CORPUSCULAR VOLUME (BEAKER) (test code = 753) 91.2 fL 79. 4-94.8 MEAN CORPUSCULAR HEMOGLOBIN (BEAKER) (test code = 751) 28.5 pg 25.6-32.2 MEAN CORPUSCULAR HEMOGLOBIN CONC (BEAKER) (test code = 752) 31.3 GM/DL 32.2-35.5 L RED CELL DISTRIBUTION WIDTH (BEAKER) (test code = 412) 18.0 % 11.7-14.4 H PLATELET COUNT (BEAKER) (test code = 756) 122 K/CU MM 150-450 L MEAN PLATELET VOLUME (BEAKER) (test code = 754) 10.9 fL 9.4-12 .3 NUCLEATED RED BLOOD CELLS (BEAKER) (test code = 413) 0 /100 WBC 0 -0 NEUTROPHILS RELATIVE PERCENT (BEAKER) (test code = 429) 47 % LYMPHOCYTES RELATIVE PERCENT (BEAKER) (test code = 430) 40 % MONOCYTES RELATIVE PERCENT (BEAKER) (test code = 431) 10 % EOSINOPHILS RELATIVE PERCENT (BEAKER) (test code = 432) 3 % BASOPHILS RELATIVE PERCENT (BEAKER) (test code = 437) 1 % NEUTROPHILS ABSOLUTE COUNT (BEAKER) (test code = 670) 2.76 K/ L 1.56-6.13 LYMPHOCYTES ABSOLUTE COUNT (BEAKER) (test code = 414) 2.36 K/ L 1.18-3.74 MONOCYTES ABSOLUTE COUNT (BEAKER) (test code = 415) 0.56 K/ L 0. 24-0.36 H EOSINOPHILS ABSOLUTE COUNT (BEAKER) (test code = 416) 0.15 K/ L 0.04-0.36 BASOPHILS ABSOLUTE COUNT (BEAKER) (test code = 417) 0.06 K/ L 0. 01-0.08 IMMATURE GRANULOCYTES-RELATIVE PERCENT (BEAKER) (test code = 2801) 0 % 0-1 POCT-GLUCOSE [id number] 21:12:00* Test Item Value Reference Range Interpretation Comments POC-GLUCOSE METER (BEAKER) (test code = 1538) 169 mg/dL 70-110 H TESTED AT [facility] [address] [facility] [address] HEPATITIS B SURFACE [id number] 15:33:00* Test Item Value Reference Range Interpretation Comments HEPATITIS B SURFACE ANTIGEN (2) (BEAKER) (test code = 2585) Nonreactive Nonreactive For chronic HD patients, draw HBsAg with each admission then every 30 days.BASIC METABOLIC [id number] 15:26:00* Test Item Value Reference Range Interpretation Comments SODIUM (BEAKER) (test code = 381) 132 meq/L 136-145 L POTASSIUM (BEAKER) (test code = 379) 4.3 meq/L 3.5-5.1 CHLORIDE (BEAKER) (test code = 382) 97 meq/L 98-107 L CO2 (BEAKER) (test code = 355) 26 meq/L 22-29 BLOOD UREA NITROGEN (BEAKER) (test code = 354) 51 mg/dL 7-21 H CREATININE (BEAKER) (test code = 358) 10.61 mg/dL 0.57-1.25 H GLUCOSE RANDOM (BEAKER) (test code = 652) 229 mg/dL 70-105 H CALCIUM (BEAKER) (test code = 697) 10.3 mg/dL 8.4-10.2 H EGFR (BEAKER) (test code = 1092) 4 mL/min/1.73 sq m ESTIMATED GFR IS NOT ACCURATE CREATININE CLEARANCE IN PREDICTING GLOMERULAR FILTRATION RATE. ESTIMATED GFR IS NOT APPLICABLE FOR DIALYSIS PATIENTS. [id number] 15:18:00* Test Item Value Reference Range Interpretation Comments PHOSPHORUS (BEAKER) (test code = 604) 2.9 mg/dL 2.3-4.7 [id number] 15:18:00* Test Item Value Reference Range Interpretation Comments MAGNESIUM (BEAKER) (test code = 627) 2.4 mg/dL 1.6-2.6 CBC W/PLT COUNT & AUTO [id number] 14:41:00* Test Item Value Reference Range Interpretation Comments WHITE BLOOD CELL COUNT (BEAKER) (test code = 775) 4.4 K/ L 3.5- 10.5 RED BLOOD CELL COUNT (BEAKER) (test code = 761) 3.86 M/ L 3.93-5 .22 L HEMOGLOBIN (BEAKER) (test code = 410) 10.9 GM/DL 11.2-15.7 L HEMATOCRIT (BEAKER) (test code = 411) 34.9 % 34.1-44.9 MEAN CORPUSCULAR VOLUME (BEAKER) (test code = 753) 90.4 fL 79. 4-94.8 MEAN CORPUSCULAR HEMOGLOBIN (BEAKER) (test code = 751) 28.2 pg 25.6-32.2 MEAN CORPUSCULAR HEMOGLOBIN CONC (BEAKER) (test code = 752) 31.2 GM/DL 32.2-35.5 L RED CELL DISTRIBUTION WIDTH (BEAKER) (test code = 412) 17.8 % 11.7-14.4 H PLATELET COUNT (BEAKER) (test code = 756) 107 K/CU MM 150-450 L MEAN PLATELET VOLUME (BEAKER) (test code = 754) 10.2 fL 9.4-12 .3 NUCLEATED RED BLOOD CELLS (BEAKER) (test code = 413) 0 /100 WBC 0 -0 NEUTROPHILS RELATIVE PERCENT (BEAKER) (test code = 429) 49 % LYMPHOCYTES RELATIVE PERCENT (BEAKER) (test code = 430) 39 % MONOCYTES RELATIVE PERCENT (BEAKER) (test code = 431) 8 % EOSINOPHILS RELATIVE PERCENT (BEAKER) (test code = 432) 3 % BASOPHILS RELATIVE PERCENT (BEAKER) (test code = 437) 1 % NEUTROPHILS ABSOLUTE COUNT (BEAKER) (test code = 670) 2.12 K/ L 1.56-6.13 LYMPHOCYTES ABSOLUTE COUNT (BEAKER) (test code = 414) 1.69 K/ L 1.18-3.74 MONOCYTES ABSOLUTE COUNT (BEAKER) (test code = 415) 0.33 K/ L 0. 24-0.36 EOSINOPHILS ABSOLUTE COUNT (BEAKER) (test code = 416) 0.14 K/ L 0.04-0.36 BASOPHILS ABSOLUTE COUNT (BEAKER) (test code = 417) 0.06 K/ L 0. 01-0.08 IMMATURE GRANULOCYTES-RELATIVE PERCENT (BEAKER) (test code = 2801) 1 % 0-1 POCT-GLUCOSE [id number] 13:08:00* Test Item Value Reference Range Interpretation Comments POC-GLUCOSE METER (BEAKER) (test code = 1538) 235 mg/dL 70-110 H TESTED AT [place] [id number] [facility] [address] HEMOGLOBIN [id number] 10:21:00* Test Item Value Reference Range Interpretation Comments HEMOGLOBIN A1C (BEAKER) (test code = 368) 7.1 % 4.3-6.[address], [id number] 09:49:00Include oral contrastFINAL REPORT HISTORY : Weight loss, unintended, non-localized abd pain Technique: Multiple axial images of the abdomen and pelvis were performed with the administration of IV and oral contrast from the lung bases to the pubic symphysis. Delayed images were also obtained. This exam was performed according to our departmental dose optimization program which includes automated exposure control, adjustment of the mA and/or kV according to patient size and/or use of iterative reconstructive technique. COMPARISON : 04/30/2012 COMMENT : The lung bases are clear. There is cardiomegaly. The visualized liver, spleen, adrenal glands, gallbladder, pancreas, stomach and duodenum are within normal limits. The kidneys are atrophic. There are several bilateral renal cysts and too small to characterize renal hypodensities but which likely represent cysts. The lar gest cyst measures up to 3.4 cm. There is no abdominal, retroperitoneal or pelvi c lymphadenopathy. There is atherosclerotic vascular disease. Multilevel degener ative disc changes of the visualized thoracolumbar spine are seen. Some scarring is seen in the anterior abdominal/pelvic wall. There is no free fluid or free a ir in the abdomen or pelvis. No findings of any bowel obstruction. The small bow el is within normal limits. There is colonic diverticulosis. There are no CT fin dings to suggest diverticulitis, however. The appendix is not visualized. Howeve r, there are no secondary CT findings to suggest appendicitis. The bladder is p oorly distended. Some diffuse wall thickening of the bladder could be due to und erdistention. A diffuse process such as cystitis or other infiltrative process/m ass, however, cannot be excluded. Findings can be correlated with cystoscopy. Th e uterus is atrophic. No adnexal masses/lesions are appreciated. Impression: 1. Atrophic kidneys containing several cysts and too small to characterize renal hy podensities 2. Colonic diverticulosis without CT findings of diverticulitis. 3. Poorly distended bladder with diffuse wall thickening. Signed: Aaron Ceron port Verified Date/Time: 01/24/2018 09:49:34 Reading Location: [address] Body Reading Room Electronically signed by: AARON CERON M.D. on 09:49 AM POCT-GLUCOSE [id number] 07:46:00* Test Item Value Reference Range Interpretation Comments POC-GLUCOSE METER (BEAKER) (test code = 1538) 115 mg/dL 70-110 H TESTED AT [facility] [address] [place] [address] TSH/FREE T4 IF [id number] 23:19:00* Test Item Value Reference Range Interpretation Comments THYROID STIMULATING HORMONE (BEAKER) (test code = 772) 0.61 uIU/mL 0.35-4.94 POCT-GLUCOSE [id number] 23:08:00* Test Item Value Reference Range Interpretation Comments POC-GLUCOSE METER (BEAKER) (test code = 1538) 146 mg/dL 70-110 H TESTED AT [facility] [address] [facility] [address] BASIC METABOLIC [id number] 23:08:00* Test Item Value Reference Range Interpretation Comments SODIUM (BEAKER) (test code = 381) 137 meq/L 136-145 POTASSIUM (BEAKER) (test code = 379) 3.9 meq/L 3.5-5.1 CHLORIDE (BEAKER) (test code = 382) 97 meq/L 98-107 L CO2 (BEAKER) (test code = 355) 29 meq/L 22-29 BLOOD UREA NITROGEN (BEAKER) (test code = 354) 48 mg/dL 7-21 H CREATININE (BEAKER) (test code = 358) 10.10 mg/dL 0.57-1.25 H GLUCOSE RANDOM (BEAKER) (test code = 652) 145 mg/dL 70-105 H CALCIUM (BEAKER) (test code = 697) 11.7 mg/dL 8.4-10.2 H EGFR (BEAKER) (test code = 1092) 5 mL/min/1.73 sq m ESTIMATED GFR IS NOT ACCURATE CREATININE CLEARANCE IN PREDICTING GLOMERULAR FILTRATION RATE. ESTIMATED GFR IS NOT APPLICABLE FOR DIALYSIS PATIENTS. LIPID [id number] 23:07:00* Test Item Value Reference Range Interpretation Comments TRIGLYCERIDES (BEAKER) (test code = 540) 73 mg/dL CHOLESTEROL (BEAKER) (test code = 631) 126 mg/dL HDL CHOLESTEROL (BEAKER) (test code = 976) 54 mg/dL LDL CHOLESTEROL CALCULATED (BEAKER) (test code = 633) 57 mg/dL Triglyceride Reference Range: Low Risk <150 Borderline 150-199 High Risk 200-499 Very High Risk >=500Cholesterol Reference Range: Low Risk <200 Borderline 200-239 High Risk >240HDL Cholesterol Reference Range: Low Risk >=60 High Risk <40LDL Cholesterol Reference Range: Optimal <100 Near Optimal 100-129 Borderline 130-159 High 160-189 Very High >=190 [id number] 23:07:00* Test Item Value Reference Range Interpretation Comments MAGNESIUM (BEAKER) (test code = 627) 2.5 mg/dL 1.6-2.6 [id number] 23:07:00* Test Item Value Reference Range Interpretation Comments PHOSPHORUS (BEAKER) (test code = 604) 2.8 mg/dL 2.3-4.7 HEPATIC FUNCTION [id number] 23:07:00* Test Item Value Reference Range Interpretation Comments TOTAL PROTEIN (BEAKER) (test code = 770) 6.5 gm/dL 6.0-8.3 ALBUMIN (BEAKER) (test code = 1145) 3.6 g/dL 3.5-5.0 BILIRUBIN TOTAL (BEAKER) (test code = 377) 0.2 mg/dL 0.2-1.2 BILIRUBIN DIRECT (BEAKER) (test code = 706) 0.1 mg/dL 0.1-0.5 ALKALINE PHOSPHATASE (BEAKER) (test code = 346) 46 U/L 40-150 AST (SGOT) (BEAKER) (test code = 353) 18 U/L 5-34 ALT (SGPT) (BEAKER) (test code = 347) 19 U/L 6-55 [id number] 23:07:00* Test Item Value Reference Range Interpretation Comments LIPASE (BEAKER) (test code = 749) 17 U/L 8-78 PROTHROMBIN [id number] 22:50:00* Test Item Value Reference Range Interpretation Comments PROTIME (BEAKER) (test code = 759) 15.3 seconds 11.7-14.7 H INR (BEAKER) (test code = 370) 1.2 <=5.9 RECOMMENDED COUMADIN/WARFARIN INR THERAPY RANGESSTANDARD DOSE: 2.0 - 3.0 Inclu april: PROPHYLAXIS for venous thrombosis, systemic embolization; TREATMENT for cesar ous thrombosis and/or pulmonary embolus.HIGH RISK: Target INR is 2.5-3.5 for pat ients with mechanical heart valves.CBC W/PLT COUNT & AUTO [id number] 22:38:00* Test Item Value Reference Range Interpretation Comments WHITE BLOOD CELL COUNT (BEAKER) (test code = 775) 6.4 K/ L 3.5- 10.5 RED BLOOD CELL COUNT (BEAKER) (test code = 761) 3.84 M/ L 3.93-5 .22 L HEMOGLOBIN (BEAKER) (test code = 410) 10.9 GM/DL 11.2-15.7 L HEMATOCRIT (BEAKER) (test code = 411) 34.3 % 34.1-44.9 MEAN CORPUSCULAR VOLUME (BEAKER) (test code = 753) 89.3 fL 79. 4-94.8 MEAN CORPUSCULAR HEMOGLOBIN (BEAKER) (test code = 751) 28.4 pg 25.6-32.2 MEAN CORPUSCULAR HEMOGLOBIN CONC (BEAKER) (test code = 752) 31.8 GM/DL 32.2-35.5 L RED CELL DISTRIBUTION WIDTH (BEAKER) (test code = 412) 17.4 % 11.7-14.4 H PLATELET COUNT (BEAKER) (test code = 756) 118 K/CU MM 150-450 L MEAN PLATELET VOLUME (BEAKER) (test code = 754) 9.7 fL 9.4-12 .3 NUCLEATED RED BLOOD CELLS (BEAKER) (test code = 413) 0 /100 WBC 0 -0 NEUTROPHILS RELATIVE PERCENT (BEAKER) (test code = 429) 48 % LYMPHOCYTES RELATIVE PERCENT (BEAKER) (test code = 430) 37 % MONOCYTES RELATIVE PERCENT (BEAKER) (test code = 431) 10 % EOSINOPHILS RELATIVE PERCENT (BEAKER) (test code = 432) 4 % BASOPHILS RELATIVE PERCENT (BEAKER) (test code = 437) 1 % NEUTROPHILS ABSOLUTE COUNT (BEAKER) (test code = 670) 3.09 K/ L 1.56-6.13 LYMPHOCYTES ABSOLUTE COUNT (BEAKER) (test code = 414) 2.35 K/ L 1.18-3.74 MONOCYTES ABSOLUTE COUNT (BEAKER) (test code = 415) 0.64 K/ L 0. 24-0.36 H EOSINOPHILS ABSOLUTE COUNT (BEAKER) (test code = 416) 0.26 K/ L 0.04-0.36 BASOPHILS ABSOLUTE COUNT (BEAKER) (test code = 417) 0.07 K/ L 0. 01-0.08 IMMATURE GRANULOCYTES-RELATIVE PERCENT (BEAKER) (test code = 2801) 0 % 0-1 RAD, CHEST, 1 VIEW, NON [id number] 22:02:00Reason for exam:->sobFINAL REPORT Comparison: 01/09/2014 TECHNIQUE: Single view of the chest FINDINGS: Cardiac silhouette is magnified by technique. Aortic calcifications are seen. Lungs are clear. No acute skeletal abnormality. Tip of right internal jugular dialysis catheter projects at the proximal right atrium. IMPRESSION: 1. No acute cardiopulmonary disease. Signed: Stephan [place] MDReport Verified Date/Time: 01/23/2018 22:02:30 Reading Location: [facility] Mammo Reading Room -GLUCOSE [id number] 17:57:00* Test Item Value Reference Range Interpretation Comments POC-GLUCOSE METER (BEAKER) (test code = 1538) 146 mg/dL 70-110 H TESTED AT [address] [address]
--- NOTE | 2019-12-18 11:20 | Emergency Department Note ---
History of Present Illnes History of Present Illness Chief Complaint: Hypertension 201/100 History of Present Illness This is a 74 year old female. was doing well prior to this. pt has no symptoms now. pt is on nifedipine 60 mg daily and clonidine 0.1 mg every 12 hours Historian: Patient Arrival Mode: Car History limited by: condition of the patient (normal) Circuits Engineer Required: No Onset (how long ago): hour(s) (4) Location: n/a Quality: n/a Radiation: Reports non-radiation Severity: moderate Onset quality: gradual Duration (how long): hour(s) (4) Timing of current episode: intermittent Progression: waxing and waning Chronicity: recurrent Context: Denies recent illness, Denies recent surgery, Denies recent immobilization, Denies recent travel, Denies trauma/injury, Denies new medications, Denies hx of DVT/PE, Denies non-compliance w/ medications Relieving factors: none Exacerbating factors: none Associated symptoms: Reports denies other symptoms Treatments prior to arrival: none Past Medical/Family History Physician Review I have reviewed the patient's past medical and family history. Any updates have been documented here. Past Medical History Recent Fever: No Clinical Suspicion of Infectio: No New/Unexplained Change in Ment: No Past Medical History: Hypertension, Diabetes, CHF, UTI's, Hemodyalisis, Hyperlipedemia, Chronic Kidney Disease Other Medical History: PNEUMONIA Other Surgery: C SECTION, ABLATION (SEPTEMBER 2013), RIGHT DIALYSIS CATH ,ATTEMPTED RIGHT ARM FISTULA Social History Smoking Cessation: Never Smoker Counseling Performed: No Any Illegal Drug Use: No TB Exposure/Symptoms: No Physically hurt or threatened: No Family History Family history of heart diseas: No Other Last Tetanus: UTD Any Pre-Existing Lines (PICC,: No Is patient up to date on immun: No Review of Systems Review of Systems Constitutional: Reports no symptoms EENTM: Reports no symptoms Cardiovascular: Reports no symptoms Respiratory: Reports no symptoms Gastrointestinal: Reports no symptoms Genitourinary: Reports no symptoms Musculoskeletal: Reports as per HPI Integumentary: Reports no symptoms Neurological: Reports no symptoms Psychological: Reports no symptoms Endocrine: Reports no symptoms Hematological/Lymphatic: Reports no symptoms Review of other systems: All other systems negative Physical Exam Related Data Allergies: Coded Allergies: No Known Allergies (Unverified , 08/11/14) Vital signs reviewed: Yes Physical Exam CONSTITUTIONAL Constitutional: Present well-developed, Present well-nourished HENT HENT: Present normocephalic, Present atraumatic, Present oropharynx clear/moist, Present nose normal HENT L/R: Present left ext ear normal, Present right ext ear normal EYES Eyes: Reports PERRL, Reports conjunctivae normal NECK Neck: Present ROM normal, Present supple PULMONARY Pulmonary: Present effort normal, Present breath sounds normal CARDIOVASCULAR Cardiovascular: Present regular rhythm, Present heart sounds normal, Present capillary refill normal, Present normal rate GASTROINTESTINAL Abdominal: Present soft, Present nontender, Present bowel sounds normal GENITOURINARY Genitourinary: Present exam deferred SKIN Skin: Present warm, Present dry MUSCULOSKELETAL Musculoskeletal: Present other (tenderness rgt shoulder/ decrease farom/ +nvi) NEUROLOGICAL Neurological: Present alert, Present oriented x 3, Present no gross motor or sensory deficits PSYCHOLOGICAL Psychological: Present mood/affect normal, Present judgement normal Assessment & Plan Medical Decision Making MDM see below Assessment & Plan Final Impression: (1) Hypertension (2) Chronic right shoulder pain Depart Disposition: HOME, SELF-long term Meds Active Scripts Ibuprofen (IBUPROFEN) 600 Mg Tablet, 600 MG PO Q6H PRN for MODERATE PAIN (4-6), #40 TAB Prov:MIKE ROBBINS 12/18/19 [Nifedipine] 30 MG TABCR No Conflict Check, 60 MG PO Q12HR for 30 Days, 5 Refills Prov:LICHA ABDALLA MD 08/17/14 Reported Medications Furosemide (FUROSEMIDE) 40 Mg Tablet, 40 MG PO BID, #30 TAB 07/04/15 Nitroglycerin (NITROSTAT) 0.4 Mg Tab.subl, 0.4 MG PO PRN 07/04/15 Pantoprazole Sodium* (PROTONIX) 40 Mg Tablet.dr, 40 MG PO DAILY, TAB 07/04/15 Acetaminophen With Codeine (TYLENOL WITH CODEINE #3 TABLET) 1 Each Tablet, 300 MG PO Q4HR PRN for PAIN, TAB 12/23/14 Hydralazine Hcl (HYDRALAZINE HCL) 25 Mg Tab, 25 MG PO BID, TAB 12/22/14 Atorvastatin Calcium (ATORVASTATIN CALCIUM) 20 Mg Tablet, 80 MG PO DAILY, TAB 12/22/14 Ferrous Sulfate (FERROUS SULFATE) 325 Mg Tablet, 325 MG PO BID 12/22/14 Metoprolol Succinate (METOPROLOL SUCCINATE) 50 Mg Tab.er.24h, 100 MG PO DAILY, MG 12/22/14 Glipizide (GLIPIZIDE) 5 Mg Tablet, 10 MG PO BID, TAB 08/11/14 Gabapentin (GABAPENTIN) 300 Mg Capsule, 300 MG PO BID, #60 CAP 08/11/14 Aspirin (ASPIRIN EC) 81 Mg Tablet., 81 MG PO DAILY, #30 TAB 08/11/14 MIKE ROBBINS Dec 18, 2019 11:20
[2019-12-18] MEDS ORDERED: IBUPROFEN600 MG PO (11:25)
== END 2019-12-18 11:30 | disposition home or self-care (01) ==
LOC: FSED 11:10
DX: I10 Essential (primary) hypertension (principal); M25.511 Pain in right shoulder; G89.29 Other chronic pain; E11.9 Type 2 diabetes mellitus without complications; E78.5 Hyperlipidemia, unspecified; N18.9 Chronic kidney disease, unspecified
CPT/HCPCS: 99282

== ENCOUNTER 2020-07-21 05:58 | Emergency (ER) | payer MEDICARE ==
[~2020-07-21] VITALS: Ht 157.5 cm; Wt 71.7 kg
[~2020-07-21 05:58] MED LIST changes: +IBUPROFEN600 MG PO
[2020-07-21] MEDS ORDERED: KETOROLAC TROMETHAMINE 30 MG/ML VIAL IM STA (06:36)
[2020-07-21] MEDS ORDERED: KETOROLAC TROMETHAMINE 30 MG/ML VIAL ONE (06:54)
[2020-07-21] MEDS ORDERED: LIDOCAINE 4% PATCH TP STA (08:20)
== END 2020-07-21 08:47 | disposition home or self-care (01) ==
LOC: ER 07:38
DX: M25.511 Pain in right shoulder (principal); M25.552 Pain in left hip; M25.551 Pain in right hip; W06.XXXA Fall from bed, initial encounter; Y93.84 Activity, sleeping; Y92.008 Other place in unspecified non-institutional (private) residence as the place of occurrence of the external cause; I12.9 Hypertensive chronic kidney disease with stage 1 through stage 4 chronic kidney disease, or unspecified chronic kidney disease; E11.22 Type 2 diabetes mellitus with diabetic chronic kidney disease; N18.9 Chronic kidney disease, unspecified; I50.9 Heart failure, unspecified; E78.5 Hyperlipidemia, unspecified
CPT/HCPCS: 70450; 71045; 72125; 73030; 73522; 93005; 99281; J1885

== ENCOUNTER 2022-01-11 19:31 | Emergency (ER) | payer MEDICARE ==
[~2022-01-11] VITALS: Ht 157.5 cm; Wt 71.7 kg
[2022-01-11] MEDS ORDERED: ONDANSETRON HCL 4 MG ORAL DISINTEGRATING TAB PO ONE (20:45)
[2022-01-11] MEDS ORDERED: ONDANSETRON HCL 4 MG ORAL DISINTEGRATING TAB ONE (21:48)
[2022-01-11] MEDS ORDERED: ANTIVERT25 M1 PO (22:13)
[2022-01-11] MEDS ORDERED: ONDANSETRON ODT4 MG PO (22:13)
== END 2022-01-11 22:15 | disposition home or self-care (01) ==
LOC: FSED 19:56
DX: R42 Dizziness and giddiness (principal); R11.2 Nausea with vomiting, unspecified; I12.9 Hypertensive chronic kidney disease with stage 1 through stage 4 chronic kidney disease, or unspecified chronic kidney disease; E11.22 Type 2 diabetes mellitus with diabetic chronic kidney disease; N18.9 Chronic kidney disease, unspecified; I50.9 Heart failure, unspecified; E78.5 Hyperlipidemia, unspecified
CPT/HCPCS: 70450; 80053; 85025; 99284; Q0162

== ENCOUNTER 2022-05-06 01:15 | Emergency (ER) | payer MEDICARE ==
[~2022-05-06] VITALS: Ht 157.5 cm; Wt 71.7 kg
[~2022-05-06 01:15] MED LIST changes: +ANTIVERT25 M1 PO; +ONDANSETRON ODT4 MG PO
[2022-05-06] MEDS ORDERED: METOCLOPRAMIDE HCL 10 MG/2ML VIAL IV STA (01:26)
[2022-05-06] MEDS ORDERED: DIPHENHYDRAMINE HCL INJ 50 MG/ML VIAL IV STA (01:26)
[2022-05-06] MEDS ORDERED: SODIUM CHLORIDE 0.9% 1000ML 1,000 ML IV STA (01:26)
[2022-05-06] MEDS ORDERED: KETOROLAC TROMETHAMINE 30 MG/ML VIAL IV STA (01:26)
[2022-05-06] MEDS ORDERED: METHYLPREDNISOLONE SOD SUCC 125 MG/2ML VIAL IV STA (01:26)
[2022-05-06 03:56] VITALS: BP 155/58
== END 2022-05-06 03:50 | disposition home or self-care (01) ==
LOC: ER 01:27
DX: R51.9 Headache, unspecified (principal); I12.0 Hypertensive chronic kidney disease with stage 5 chronic kidney disease or end stage renal disease; E11.22 Type 2 diabetes mellitus with diabetic chronic kidney disease; N18.6 End stage renal disease; Z99.2 Dependence on renal dialysis; I50.9 Heart failure, unspecified; E78.5 Hyperlipidemia, unspecified
CPT/HCPCS: 70450; 99283; J1200; J1885; J2765; J2930; J7030